=== PATIENT | male | born 1965 | race Caucasian/White ===

== ENCOUNTER 2020-06-10 23:57 | Inpatient (IN) | payer OTHER ==
--- NOTE | 2020-06-11 00:34 | PDOC ---
History of Present Illness - General Chief Complaint: Urinary Problem Stated Complaint: PAINFUL URINATION Time Seen by Provider: 06/11/20 00:34 History Source: Patient Exam Limitations: No Limitations - History of Present Illness Initial Comments: 06/11/20 00:34 Jose E Dior is a 55M with PMH NIDDM presenting with complaint of dark urine and burning with urination. Patient reports that he has not seen a doctor in the last 20 years, travels back and forth between [place] and the [place], does not have a primary MD that he gets Rx from. Last 3 days has had darker urine and dysuria, farrell when he urinates, also normally has frequency but has urinating less. Reports some intermittent R flank pain as well. Denies discharge or hematuria. Denies N/V, abdominal pain, fever, chills, chest pain, SOB, cough, diarrhea. Tolerating PO. Denies sexual activity in the last 2 months, has had STI in the past. No PSH, no other reported PMH, no other medications other than metformin taken. Past History - Medical History Allergies/Adverse Reactions: Allergies Allergy/AdvReac Type Severity Reaction Status Date / Time No Known Allergies Allergy Verified 06/11/20 00:20 - Psycho-Social/Smoking History Smoking History: Never smoked Information on smoking cessation initiated: No - Substance Abuse Hx (Audit-C & DAST Scrn) How often the patient has a drink containing alcohol: Never Score: In Men: 4 or > Positive; In Women: 3 or > Positive: 0 Screen Result (Pos requires Nsg. Audit-10AR): Negative In the last yr the pt used illegal drug/Rx for NonMed reason: No Score: Yes response is considered Positive: 0 Screen Result (Positive result requires Nsg. DAST-10): Negative Review of Systems - Review of Systems Able to Perform ROS?: Yes Constitutional: No: Chills, Fever, Weakness HEENTM: No: Symptoms Reported Respiratory: No: Shortness of Breath, SOB with Exertion, SOB at Rest Cardiac (ROS): No: Chest Pain, Edema, Irregular Heart Rate, Lightheadedness, Palpitations ABD/GI: No: Constipated, Diarrhea, Nausea, Poor Appetite, Poor Fluid Intake, V omiting : Yes: Burning, Flank Pain. No: Dysuria, Discharge, Hematuria, Incontinence, Pain Musculoskeletal: No: Symptoms Reported Integumentary: No: Symptoms Reported Neurological: No: Symptoms reported Endocrine: No: Symptoms Reported Hematologic/Lymphatic: No: Symptoms Reported All Other Systems: Reviewed and Negative *Physical Exam - Vital Signs Last Vital Signs Temp Pulse Resp BP Pulse Ox 98.4 F 95 H 18 121/74 100 06/11/20 00:00 06/11/20 00:00 06/11/20 00:00 06/11/20 00:00 06/11/20 00:00 - Physical Exam General Appearance: Yes: Nourished, Appropriately Dressed, Other (resting comfor tably in bed, very cooperative, in NAD). No: Apparent Distress HEENT: positive: EOMI, DIVYA, Normal Voice, Symmetrical, Pharynx Normal, Hearing Grossly Normal. negative: Scleral Icterus (R), Scleral Icterus (L), Pharyngeal Erythema, Tonsillar Exudate, Tonsillar Erythema Neck: negative: Tender, Lymphadenopathy (R), Lymphadenopathy (L) Respiratory/Chest: positive: Lungs Clear, Normal Breath Sounds. negative: Chest Tender, Respiratory Distress, Accessory Muscle Use Cardiovascular: positive: Regular Rhythm, Regular Rate. negative: Murmur Gastrointestinal/Abdominal: positive: Normal Bowel Sounds, Flat, Soft. negative: Tender, Rebound, Tenderness, Hernia Rectal Exam: positive: normal exam, NL Prostate. negative: decreased tone, hemorrhoids Musculoskeletal: positive: Normal Inspection, Vertebral Tenderness. negative: CVA Tenderness Extremity: positive: Normal Capillary Refill, Normal Inspection, Normal Range of Motion. negative: Tender, Pedal Edema, Swelling, Calf Tenderness Integumentary: positive: Normal Color, Dry, Warm Neurologic: positive: Fully Oriented, Alert, Normal Mood/Affect, Normal Response ED Treatment Course - LABORATORY CBC & Chemistry Diagram: 06/11/20 00:45 06/11/20 00:45 - RADIOLOGY Radiograph Interpretation: 06/11/20 03:27 Jose Cornejo MD wrote on Jun 11, 2020 at 01:54 AM: Referring Physician: BRADLY TENORIO RESIDENT Patient Name: JOSE E DIOR THIS IS A PRELIMINARY REPORT DATE OF SERVICE: 2020-06-11 01:33:16 IMAGES: 25 EXAM: KIDNEY / RENAL US HISTORY: Right flank pain COMPARISON: None. FINDINGS: Right kidney is 10.9 cm in length and appears normal. Left kidney is 10.7 cm in length and appears normal IMPRESSION: Normal kidneys. 06/11/20 04:41 Jose Cornejo MD wrote on Jun 11, 2020 at 04:16 AM: Referring Physician: BRADLY TENORIO RESIDENT Patient Name: JOSE E DIOR THIS IS A PRELIMINARY REPORT DATE OF SERVICE: 2020-06-11 02:58:47 IMAGES: 607 EXAM: CT abdomen and pelvis without contrast HISTORY: Renal calculus COMPARISON: None. FINDINGS: Lung bases are clear. The visualized cardiac chambers are normal size and configuration. Ultrasound of the gallbladder inflammation or biliary duct dilation. Minimal right hydronephrosis is noted secondary to a 7 mm mid to distal right ureteral stone. Punctate left renal stone is also noted. Normal liver, pancreas, spleen, adrenal glands. The stomach and abdominal small and large bowel are normal. There is no aortic aneurysm. There is no significant retroperitoneal lymphadenopathy. The pelvic small and large bowel are normal. The appendix is normal. The urinary bladder and prostate gland are normal. No pelvic free fluid is identified. There is no significant pelvic lymphadenopathy. IMPRESSION: Minimal right hydronephrosis secondary to a 7 mm mid to distal right ureteral stone. Punctate left renal stone. Gallstones. Medical Decision Making - Medical Decision Making 06/11/20 01:42 Patient presents with complaint of dysuria and flank pain, has history of NIDDM but does not closely follow BGM. Patient denies any recent sexual activity, has no discharge or lesions on exam. VSS. Getting CBC/CMP/ECG to evaluate for infection and electrolyte abnormality, UA/UC for evaluation UTI, and US renal for evaluation stone vs. hydro. 06/11/20 01:44 ECG NSR with HR 86, QTc 411, no LES/D or TWI. 06/11/20 02:35 Renal US shows normal kidneys. Labs notable for: - WBC 14 - CMP WNL - UA 3+ blood, 1+ ketones Given hematuria, concerned for renal calculus vs. AAA, patient has not been evaluated by physician in a long time. Ordering spiral CT for evaluation. 06/11/20 04:42 CT spiral shows 7mm R mid to distal ureteral stone with mild R hydronephrosis. Will need admission for urology f/u, would also like DM management planning. 06/11/20 05:16 Discussed case with ELAINA Kim, accepts for admission to Med/Surg under Dr. Frias, consult placed to Dr. Jose A Garcia urologist executive relations specialist. Discharge - Discharge Information Problems reviewed: Yes Clinical Impression/Diagnosis: Dysuria, Flank pain, Ureteral calculus, right Condition: Improved - Admission Yes - Follow up/Referral - Patient Discharge Instructions - Post Discharge Activity
[2020-06-11 00:35] VITALS: BMI 28.2
--- NOTE | 2020-06-11 01:14 | PDOC ---
Attending Attestation - Resident Resident Name: SvetlanayashiraWander - ED Attending Attestation I have performed the following: I have examined & evaluated the patient, The case was reviewed & discussed with the resident, I agree w/resident's findings & plan, Exceptions are as noted - HPI HPI: 06/11/20 01:13 55 yo male p/w burning upon urination and right flank pain 06/11/20 01:34 - Physicial Exam PE: 06/11/20 01:14 wnwd 55 yo male has c/o dysuria head ncat neck supple lungs cta b/l cvs [id number] abdomen no rebound, nontender mild rt flank pain skin warm and dry extremities from,motor strength 5/5 b/l neuro axox3,ambulatory 06/11/20 01:45 - Medical Decision Making 06/11/20 01:25 this 55 yo has not seen a physician for many years . He was diagnosed with hyperglycenmia in 2010. He does not have a prescription for metformin but buys it in the [place] where he had lived up until recently -he noted his urine getting darker and so came to the ER tonight 06/11/20 01:34 06/11/20 01:43 review labs there is blood in the urine but he is not spilling any glucose cbc shows a leukocytosis UA reveals hematuria US pending 06/11/20 01:47 Discharge - Discharge Information Problems reviewed: Yes Clinical Impression/Diagnosis: Dysuria, Flank pain, Ureteral calculus, right Condition: Improved - Follow up/Referral - Patient Discharge Instructions - Post Discharge Activity
[2020-06-11 01:33] LABS: BASO % 0.8 % (0-2.0); EOS % 1.9 % (0-4.5); HEMATOCRIT 45.3 % (35.4-49); HEMOGLOBIN 15.5 GM/dL (11.7-16.9); LYMPH % 26.5 % (8-40); MCH 31.2 pg (25.7-33.7); MCHC 34.2 g/dl (32.0-35.9); MEAN CELL VOLUME 91.2 fl (80-96); MONO % 6.1 % (3.8-10.2); NEUT % 64.7 % (42.8-82.8); PLATELET COUNT 171 K/MM3 (134-434); RBC 4.97 M/mm3 (4.00-5.60); WHITE BLOOD COUNT 14.1 K/mm3 (4.0-10.0)
[2020-06-11 01:36] LABS: EPI CELLS 4 /uL (0-25.1); HYALINE CASTS 0 /uL (0-3.1); URINE APPEARANCE CLOUDY; URINE BACTERIA 3 /uL (0-1359); URINE BILIRUBIN NEGATIVE (NEGATIVE); URINE COLOR YELLOW; URINE GLUCOSE (UA) NEGATIVE (NEGATIVE); URINE KETONE 1+ (NEGATIVE); URINE LEUK ESTERASE NEGATIVE (NEGATIVE); URINE NITRITE NEGATIVE (NEGATIVE); URINE PROTEIN TRACE (NEGATIVE); URINE RBC 1551 /uL (0-23.9); URINE WBC 19 /uL (0-25.8)
[2020-06-11 01:51] LABS: BILIRUBIN,TOTAL 0.5 mg/dL (0.2-1); CREATININE 0.8 mg/dL (0.55-1.3); POTASSIUM 3.9 mmol/L (3.5-5.1); TOT PROT 6.9 g/dl (6.4-8.2)
--- NOTE | 2020-06-11 05:26 | HP ---
CHIEF COMPLAINT: Flank Pain, Dysuria, Burning PCP: None HISTORY OF PRESENT ILLNESS: This is a 55 y/o male with a PMHx of NIDDM, hospitalized for DKA 10 yrs ago. Who presents to the ED with right flank pain, dysuria, burning x 4 days, dark brown urine x 1 day. Patients urinary frequency and a change in his urine stream. He denies penile discharge. Patient reports being in a monogamous relationship with his . Patient denies fever, chills, cough, SOB, dizziness, BENOIT, CP, palpitations, N/V/D, constipation, melena, hematochezia. Patient denies sick contacts. He reports recent travel from the [place] 4 weeks ago. He reports taking Met[place] for Diabetes [place] Patient reports not seeing a doctor in 20 years. ER course was notable for: (1) Spiral CT- 7mm right mid to distal ureteral stone with mild right hydronephrosis (2) Renal US- normal kidneys (3) WBC- 14 (4) Glucose 180 (5) UA- cloudy, trace protein, +1 ketones, +3 blood, 19 WBC, 3 Bacteria Recent Travel: 4 weeks ago PAST MEDICAL HISTORY: NIDDM PAST SURGICAL HISTORY: Cyst removal from buttock Social History: SmokinPPD x 30 yrs Alcohol: Denies Drugs: Denies , lives with his daughter (CHRISTINE) Allergies No Known Allergies Allergy (Verified 06/11/20 00:20) HOME MEDICATIONS: REVIEW OF SYSTEMS CONSTITUTIONAL: Absent: fever, chills, diaphoresis, generalized weakness, malaise, loss of appetite, weight change HEENT: Absent: rhinorrhea, nasal congestion, throat pain, throat swelling, difficulty swallowing, mouth swelling, ear pain, eye pain, visual changes CARDIOVASCULAR: Absent: chest pain, syncope, palpitations, irregular heart rate, lightheadedness, peripheral edema RESPIRATORY: Absent: cough, shortness of breath, dyspnea with exertion, orthopnea, wheezing, stridor, hemoptysis GASTROINTESTINAL: Absent: abdominal pain, abdominal distension, nausea, vomiting, diarrhea, constipation, melena, hematochezia GENITOURINARY: dysuria, frequency, flank pain, brown urine Absent: urgency, hesitancy, hematuria, genital pain MUSCULOSKELETAL: Absent: myalgia, arthralgia, joint swelling, back pain, neck pain SKIN: Absent: rash, itching, pallor HEMATOLOGIC/IMMUNOLOGIC: Absent: easy bleeding, easy bruising, lymphadenopathy, frequent infections ENDOCRINE: Absent: unexplained weight gain, unexplained weight loss, heat intolerance, cold intolerance NEUROLOGIC: Absent: headache, focal weakness or paresthesias, dizziness, unsteady gait, seizure, mental status changes, bladder or bowel incontinence PSYCHIATRIC: Absent: anxiety, depression, suicidal or homicidal ideation, hallucinations. PHYSICAL EXAMINATION Vital Signs - 24 hr 06/11/20 06/11/20 00:00 03:44 Temperature 98.4 F 97.8 F Pulse Rate 95 H Pulse Rate [ 84 Left Apical] Respiratory 18 19 Rate Blood Pressure 121/74 Blood Pressure 116/78 [Right Arm] O2 Sat by Pulse 100 98 Oximetry (%) GENERAL: Awake, alert, and fully oriented, in no acute distress. HEAD: Normal with no signs of trauma. EYES: Pupils equal, round and reactive to light, extraocular movements intact, sclera anicteric, conjunctiva clear. No lid lag. EARS, NOSE, THROAT: Ears normal, nares patent, oropharynx clear without exudates. Moist mucous membranes. NECK: Normal range of motion, supple without lymphadenopathy, JVD, or masses. LUNGS: Breath sounds equal, clear to auscultation bilaterally. No wheezes, and no crackles. No accessory muscle use. HEART: Regular rate and rhythm, normal S1 and S2 without murmur, rub or gallop. ABDOMEN: +suprapubic tenderness. Soft, nontender, not distended, normoactive bowel sounds, no guarding, no rebound, no masses. No hepatomegaly or splenomegaly. MUSCULOSKELETAL: Normal range of motion at all joints. No bony deformities or tenderness. No CVA tenderness. UPPER EXTREMITIES: 2+ pulses, warm, well-perfused. No cyanosis. No clubbing. No peripheral edema. LOWER EXTREMITIES: 2+ pulses, warm, well-perfused. No calf tenderness. No peripheral edema. NEUROLOGICAL: Cranial nerves II-XII intact. Normal speech. Gait not observed. PSYCHIATRIC: Cooperative. Good eye contact. Appropriate mood and affect. SKIN: Warm, dry, normal turgor, no rashes or lesions noted, normal capillary refill. Laboratory Results - last 24 hr 06/11/20 06/11/20 06/11/20 00:37 00:45 00:45 WBC 14.1 H RBC 4.97 Hgb 15.5 Hct 45.3 MCV 91.2 MCH 31.2 MCHC 34.2 RDW 13.0 Plt Count 171 MPV 10.0 Absolute Neuts (auto) 9.1 H Neutrophils % 64.7 Lymphocytes % 26.5 Monocytes % 6.1 Eosinophils % 1.9 Basophils % 0.8 Nucleated RBC % 0 Sodium 140 Potassium 3.9 Chloride 106 Carbon Dioxide 27 Anion Gap 7 L BUN 12.0 Creatinine 0.8 Est GFR (CKD-EPI)AfAm 117.38 Est GFR (CKD-EPI)NonAf 101.27 Random Glucose 180 H Calcium 9.0 Total Bilirubin 0.5 AST 13 L ALT 23 Alkaline Phosphatase 72 Total Protein 6.9 Albumin 4.0 Urine Color Yellow Urine Appearance Cloudy Urine pH 7.0 Ur Specific [place] 1.025 Urine Protein Trace Urine Glucose (UA) Negative Urine Ketones 1+ H Urine Blood 3+ H Urine Nitrite Negative Urine Bilirubin Negative Urine Urobilinogen 1.0 Ur Leukocyte Esterase Negative Urine WBC (Auto) 19 Urine RBC (Auto) 1551 Urine Casts (Auto) 0 U Epithel Cells (Auto) 4 Urine Bacteria (Auto) 3 ASSESSMENT/PLAN: This is a 55 y/o male with a PMHx of NIDDM, DKA (10 yrs ago). Admitted to /S for Ureteral Calculus, Hydronephrosis, UTI for further evaluation of their emergent condition. Plan: See Problem List FEN D50.45%NS@75ml/hr Replete lytes prn NPO DVT ppx OOB SCDs Hold AC secondary to Hematuria Dispo: Requires Inpatient Care Family Medical History Family History: Unremarkable Problem List - Problem (1) Ureteral calculus, right Assessment/Plan: Spiral CT image, report reviewed- minimal right hydronephrosis secondary to a 7 mm mid to distal right ureteral stone. Punctate left renal stone Renal US image, report reviewed- Normal Kidneys Continue IVF Appreciate Urology consult Monitor CBC, CMP Monitor vitals NPO Flomax Morphine Sulfate prn Strain all urine Code(s): N20.1 - CALCULUS OF URETER (2) Flank pain Assessment/Plan: see above Code(s): R10.9 - UNSPECIFIED ABDOMINAL PAIN (3) Hydronephrosis Assessment/Plan: Secondary to Ureteral Stone Appreciate Urology consult Flomax Continue IVF Code(s): N13.30 - UNSPECIFIED HYDRONEPHROSIS (4) UTI (urinary tract infection) Assessment/Plan: UA- cloudy, trace protein, +1 ketones, +3 blood, 19 WBC, 1551 RBC, 3 Bacteria Urine Culture-pending Will treat empirically with Ceftriaxone WBC 14 Monitor CBC Monitor vitals Code(s): N39.0 - URINARY TRACT INFECTION, SITE NOT SPECIFIED (5) Diabetes mellitus Assessment/Plan: stable BGMs ISS, when diet resumed Hold Metformin Monitor CMP Code(s): E11.9 - TYPE 2 DIABETES MELLITUS WITHOUT COMPLICATIONS (6) Encounter for screening laboratory testing for COVID-19 virus Assessment/Plan: Low Risk COVID PCR-pending Isolation Precautions Code(s): Z11.59 - ENCOUNTER FOR SCREENING FOR OTHER VIRAL DISEASES Visit type - Emergency Visit Emergency Visit: Yes ED Registration Date: 06/11/20 Care time: The patient presented to the Emergency Department on the above date and was hospitalized for further evaluation of their emergent condition. - New Patient This patient is new to me today: Yes Date on this admission: 06/11/20 - Critical Care Critical Care patient: No
[2020-06-11] MEDS ORDERED: CEFTRIAXONE 1 GM in DEXTROSE 5%-WATER - 50 ML IVPB ONE (05:31)
[2020-06-11] MEDS ORDERED: CEFTRIAXONE 1 GM/50 ML BAG ONE ×2 (06:00→09:08)
[2020-06-11] MEDS: DEXTROSE 5%-0.45% SALINE 1,000 ML IV SCH ×2 (06:07→11:25)
[2020-06-11] MEDS ORDERED: ACETAMINOPHEN 1000 MG/100 ML VIAL (NON FORMULARY) IVPB PRN (07:29)
[2020-06-11] MEDS ORDERED: MORPHINE SULFATE 2 MG/ML VIAL IVPUSH PRN (07:30)
[2020-06-11] MEDS ORDERED: TAMSULOSIN HCL 0.4 MG CAP ONE (09:08)
[2020-06-11] MEDS: TAMSULOSIN HCL 0.4 MG CAP PO SCH (09:30)
--- NOTE | 2020-06-11 10:08 | PN ---
Physical Exam: SUBJECTIVE: Patient seen and examined at the bedside. He is awaiting ED bed assignment. He denies any pain, no nausea or vomiting. Has not seen a doctor for over 11 years per patient. Travels between the [place] and [facility]. Tells me that he does not want to have surgery. Asked him to wait to speak with urology so that options can be discussed with them. OBJECTIVE: Patient is a 55 y/o male with a PMHx of NIDDM, hospitalized for DKA 10 yrs ago. Who presents to the ED with right flank pain, dysuria, burning x 4 days, dark brown urine x 1 day. Patients urinary frequency and a change in his urine stream. Patient denies fever, chills, cough, SOB, dizziness, BENOIT, CP, palpitations, N/V/D, constipation, melena, hematochezia. Patient denies sick contacts. He reports recent travel from the [facility] 4 weeks ago. He reports taking Metformin for Diabetes [place] Vital Signs Period Temp Pulse Resp BP Sys/Mckeon Pulse Ox Last 24 Hr 97.8 F-98.4 F 77-95 18-19 116-131/74-86 96-100 GENERAL: The patient is awake, alert, and fully oriented, in no acute distress. HEAD: Normal with no signs of trauma. EYES: PERRL, extraocular movements intact, sclera anicteric, conjunctiva clear. No ptosis. ENT: Ears normal, nares patent, oropharynx clear without exudates, moist mucous membranes. NECK: Trachea midline, full range of motion, supple. LUNGS: Breath sounds equal, clear to auscultation bilaterally, no wheezes HEART: Regular rate and rhythm, S1, S2 without murmur, rub or gallop. ABDOMEN: Soft, nontender, nondistended, normoactive bowel sounds EXTREMITIES: no edema. NEUROLOGICAL: Normal speech, gait not observed. PSYCH: Normal mood, normal affect. SKIN: Warm, dry, normal turgor, no rashes or lesions noted Laboratory Results - last 24 hr 06/11/20 06/11/20 06/11/20 00:37 00:45 00:45 WBC 14.1 H RBC 4.97 Hgb 15.5 Hct 45.3 MCV 91.2 MCH 31.2 MCHC 34.2 RDW 13.0 Plt Count 171 MPV 10.0 Absolute Neuts (auto) 9.1 H Neutrophils % 64.7 Lymphocytes % 26.5 Monocytes % 6.1 Eosinophils % 1.9 Basophils % 0.8 Nucleated RBC % 0 Sodium 140 Potassium 3.9 Chloride 106 Carbon Dioxide 27 Anion Gap 7 L BUN 12.0 Creatinine 0.8 Est GFR (CKD-EPI)AfAm 117.38 Est GFR (CKD-EPI)NonAf 101.27 Random Glucose 180 H Calcium 9.0 Total Bilirubin 0.5 AST 13 L ALT 23 Alkaline Phosphatase 72 Total Protein 6.9 Albumin 4.0 Urine Color Yellow Urine Appearance Cloudy Urine pH 7.0 Ur Specific [place] 1.025 Urine Protein Trace Urine Glucose (UA) Negative Urine Ketones 1+ H Urine Blood 3+ H Urine Nitrite Negative Urine Bilirubin Negative Urine Urobilinogen 1.0 Ur Leukocyte Esterase Negative Urine WBC (Auto) 19 Urine RBC (Auto) 1551 Urine Casts (Auto) 0 U Epithel Cells (Auto) 4 Urine Bacteria (Auto) 3 Active Medications Generic Name Dose Route Start Last Admin Trade Name Carmen PRN Reason Stop Dose Admin Acetaminophen 1,000 mg 06/11/20 07:29 Ofirmev Injection - IVPB 06/12/20 07:30 Q6H PRN PAIN LEVEL 4 - 6 Dextrose/Sodium Chloride 1,000 mls @ 75 mls/hr 06/11/20 05:30 06/11/20 06:07 D5-1/2ns - IV 75 mls/hr ASDIR ABILIO Administration Ceftriaxone Sodium 1 gm/ 50 mls @ 100 mls/hr 06/12/20 10:00 Dextrose IVPB DAILY [facility] Protocol Morphine Sulfate 2 mg 06/11/20 07:30 Morphine Sulfate IVPUSH Q6H PRN PAIN LEVEL 7 - 10 Nicotine 14 mg 06/11/20 10:00 Nicoderm Patch - TD DAILY [facility] Tamsulosin HCl 0.4 mg 06/11/20 08:30 Flomax - PO DAILY@0830 [facility] ASSESSMENT/PLAN: Problem List - Problems (1) Diabetes mellitus Assessment/Plan: patient uses metformin which he buys from his friends, has no PCP or anyone to follow his diabetes. encouraged him to attend our clinic at [facility] on d/c, he agrees to. He is uninsured at this time but I assured him that a sliding scale may be provided for him. on insulin pending a1c Code(s): E11.9 - TYPE 2 DIABETES MELLITUS WITHOUT COMPLICATIONS (2) Dysuria Assessment/Plan: on flomax, urology consulted Code(s): R30.0 - DYSURIA (3) Encounter for screening laboratory testing for COVID-19 virus Assessment/Plan: serology pending Code(s): Z11.59 - ENCOUNTER FOR SCREENING FOR OTHER VIRAL DISEASES (4) Flank pain Code(s): R10.9 - UNSPECIFIED ABDOMINAL PAIN (5) Hydronephrosis Assessment/Plan: per imaging, urology following Code(s): N13.30 - UNSPECIFIED HYDRONEPHROSIS (6) UTI (urinary tract infection) Assessment/Plan: on ceftriaxone. urine culture pending Code(s): N39.0 - URINARY TRACT INFECTION, SITE NOT SPECIFIED (7) Ureteral calculus, right Assessment/Plan: Spiral CT image, report reviewed-minimal right hydronephrosis secondary to a 7 mm mid to distal right ureteral stone. Punctate left renal stone Renal US image, report reviewed- Normal Kidneys on IVF Flomax Strain all urine Code(s): N20.1 - CALCULUS OF URETER Visit type - Emergency Visit Emergency Visit: Yes ED Registration Date: 06/11/20 Care time: The patient presented to the Emergency Department on the above date and was hospitalized for further evaluation of their emergent condition. - New Patient This patient is new to me today: Yes Date on this admission: 06/11/20 - Critical Care Critical Care patient: No - Discharge Referral Referred to [facility] No
--- NOTE | 2020-06-11 10:37 | EKG ---
Test Reason : Blood Pressure : / mmHG Vent. Rate : 086 BPM Atrial Rate : 086 BPM P-R Int : 148 ms QRS Dur : 086 ms QT Int : 344 ms P-R-T Axes : 070 066 046 degrees QTc Int : 411 ms NORMAL SINUS RHYTHM NORMAL ECG NO PREVIOUS ECGS AVAILABLE Confirmed by Josh Delgadillo MD ([id number]) on 06/11/2020 10:36:33 AM Referred By: Confirmed By:Josh Delgadillo MD
[2020-06-11] MEDS: NICOTINE 14 MG/24 HOURS TOPICAL PATCH TD SCH (11:25)
[2020-06-11] MEDS: INSULIN SLIDING SCALE (NOVOLOG) 1 VIAL SQ SCH ×2 (17:30→23:53)
--- NOTE | 2020-06-11 22:55 | CONS ---
DATE OF CONSULTATION: DATE OF DICTATION: 06/11/2020 HISTORY OF PRESENT ILLNESS: The patient is a 55-year-old male admitted via the emergency room on June 11, 2020, complaining of right flank pain, frequency, dysuria, and stranguria. He does have history of noninsulin dependent diabetes, he was hospitalized 10 years earlier for diabetic ketoacidosis. He has been complaining of right flank pain for the past 4 days. He states that his urine has gotten darker. Patient's frequency also increased in severity. He denies any penile discharge. He reports being in a monogamous relationship with his . He denies fevers, chills, chest pain. Patient reports that he travels between the [facility] and [place]. He arrives here 4 weeks earlier. He is on metformin for his diabetes. He does not have a PMD in [place]. In the emergency room, a spiral CT of the abdomen revealed a 7-mm right mid ureteral stone with mild right hydroureteronephrosis. His white count was 14,000. His glucose is 180. His urinalysis is heme positive. He does smoke 1 pack of cigarettes a day. He denies ethanolism or drug use. He denies any allergies. PHYSICAL EXAMINATION: Abdomen: Revealed a soft abdomen. There was right CVA tenderness, also right lower quadrant tenderness. Genitalia: Atraumatic. Testes are normal in size and consistency. Vital signs: His temperature in the emergency room was 98.4, pulse rate 84, respirations 19, blood pressure 121/74, pulse oximetry 100. The patient's white count again is 14,100. Hemoglobin and hematocrit are 15.5 over 45.3. Platelets were 171. His renal function is perfectly normal with a BUN of 12 and a creatinine of 0.8. Liver enzymes were normal. A urinalysis was positive for blood, ketones, and sugar. IMPRESSION: At present is a 55-year-old male with past history of diabetes, presents with right hydronephrosis and a right mid ureteral stone, severe right flank pain. Will admit and strain urine. Will also recommend placing the patient on Flomax 0.4 mg daily. Will get renal sonogram in a.m. If hydronephrosis is still present, will recommend cystoscopy, right laser lithotripsy with placement of a JJ stent. Ambar [id number]
[2020-06-11] MEDS: HEPARIN NA (PORCINE) 5,000 UNITS/ML 1ML VIAL SQ SCH (23:52)
[2020-06-12] MEDS: DEXTROSE 5%-0.45% SALINE 1,000 ML IV SCH ×3 (00:37→17:04)
[2020-06-12] MEDS: INSULIN SLIDING SCALE (NOVOLOG) 1 VIAL SQ SCH ×4 (06:00→21:54)
[2020-06-12] MEDS ORDERED: PNEUMOC 13-VAL CONJ-DIP CRM/PF 0.5 ML DISP.SYRIN IM ONE (08:28)
[2020-06-12] MEDS: TAMSULOSIN HCL 0.4 MG CAP PO SCH (08:32)
[2020-06-12] MEDS ORDERED: cefTRIAXone SODIUM 1 GM VIAL ONE (09:46)
[2020-06-12] MEDS ORDERED: DEXTROSE 5%-WATER - 50 ML IVPB ONE (09:46)
[2020-06-12] MEDS: HEPARIN NA (PORCINE) 5,000 UNITS/ML 1ML VIAL SQ SCH ×2 (11:18→21:55)
[2020-06-12] MEDS: CEFTRIAXONE 1 GM in DEXTROSE 5%-WATER - 50 ML IVPB SCH (11:18)
[2020-06-12] MEDS: NICOTINE 14 MG/24 HOURS TOPICAL PATCH TD SCH (11:18)
[2020-06-12 11:19] LABS: BASO % 1.2 % (0-2.0); EOS % 2.4 % (0-4.5); HEMATOCRIT 44.6 % (35.4-49); HEMOGLOBIN 15.3 GM/dL (11.7-16.9); LYMPH % 30.9 % (8-40); MCH 31.5 pg (25.7-33.7); MCHC 34.3 g/dl (32.0-35.9); MEAN CELL VOLUME 91.9 fl (80-96); MEAN PLT VOLUME 9.8 fl (7.5-11.1); MONO % 7.4 % (3.8-10.2); NEUT % 58.1 % (42.8-82.8); PLATELET COUNT 153 K/MM3 (134-434); RBC 4.85 M/mm3 (4.00-5.60); RDW 13.1 % (11.9-15.9)
[2020-06-12 11:50] LABS: ALBUMIN 3.4 g/dl (3.4-5.0); BILIRUBIN,TOTAL 0.7 mg/dL (0.2-1); BLOOD UREA NITROGEN 9.7 mg/dL (7-18); CALCIUM 8.6 mg/dL (8.5-10.1); CREATININE 0.7 mg/dL (0.55-1.3); POTASSIUM 3.9 mmol/L (3.5-5.1); TOT PROT 6.4 g/dl (6.4-8.2)
[2020-06-12] MEDS ORDERED: INSULIN (NOVOLOG) ASPART 100 UNITS/ML 10ML VIAL ONE (16:57)
--- NOTE | 2020-06-12 17:47 | PN ---
Physical Exam: SUBJECTIVE: Patient seen and examined. Denies malaise or chest pain. OBJECTIVE: Patient is a 55 y/o male with a PMHx of NIDDM, hospitalized for DKA 10 yrs ago. Who presents to the ED with right flank pain, dysuria, burning x 4 days, dark brown urine x 1 day. Patients urinary frequency and a change in his urine strea m. Patient denies fever, chills, cough, SOB, dizziness, BENOIT, CP, palpitations, N/V/D, constipation, melena, hematochezia. Patient denies sick contacts. He reports recent travel from the [place] 4 weeks ago. He reports taking Met[place] for [place] does not take it consistently. Vital Signs Period Temp Pulse Resp BP Sys/Mckeon Pulse Ox Last 24 Hr 98.4 F-99 F 72-77 16-18 118-132/63-78 97-98 GENERAL: The patient is awake, alert, and fully oriented, in no acute distress. HEAD: Normal with no signs of trauma. EYES: PERRL, extraocular movements intact, sclera anicteric, conjunctiva clear. No ptosis. ENT: Ears normal, nares patent, oropharynx clear without exudates, moist mucous membranes. NECK: Trachea midline, full range of motion, supple. LUNGS: Breath sounds equal, clear to auscultation bilaterally, no wheezes HEART: Regular rate and rhythm, S1, S2 without murmur, rub or gallop. ABDOMEN: Soft, nontender, nondistended, normoactive bowel sounds EXTREMITIES: no edema. NEUROLOGICAL: Normal speech, gait not observed. PSYCH: Normal mood, normal affect. SKIN: Warm, dry, normal turgor, no rashes or lesions noted Laboratory Results - last 24 hr 06/11/20 06/11/20 06/11/20 05:54 10:00 23:46 WBC RBC Hgb Hct MCV MCH MCHC RDW Plt Count MPV Absolute Neuts (auto) Neutrophils % Lymphocytes % Monocytes % Eosinophils % Basophils % Nucleated RBC % Sodium Potassium Chloride Carbon Dioxide Anion Gap BUN Creatinine Est GFR (CKD-EPI)AfAm Est GFR (CKD-EPI)NonAf POC Glucometer 156 Random Glucose Hemoglobin A1c % 10.9 H Calcium Magnesium Total Bilirubin AST ALT Alkaline Phosphatase Total Protein Albumin COVID-19 (LUIS) Not detected 06/12/20 06/12/20 06/12/20 05:48 10:46 10:46 WBC 8.0 RBC 4.85 Hgb 15.3 Hct 44.6 MCV 91.9 MCH 31.5 MCHC 34.3 RDW 13.1 Plt Count 153 MPV 9.8 Absolute Neuts (auto) 4.7 Neutrophils % 58.1 Lymphocytes % 30.9 Monocytes % 7.4 Eosinophils % 2.4 Basophils % 1.2 Nucleated RBC % 0 Sodium 138 Potassium 3.9 Chloride 105 Carbon Dioxide 25 Anion Gap 7 L BUN 9.7 Creatinine 0.7 Est GFR (CKD-EPI)AfAm 124.00 Est GFR (CKD-EPI)NonAf 106.99 POC Glucometer 185 Random Glucose 217 H Hemoglobin A1c % Calcium 8.6 Magnesium 2.0 Total Bilirubin 0.7 AST 11 L ALT 22 Alkaline Phosphatase 70 Total Protein 6.4 Albumin 3.4 COVID-19 (LUIS) 06/12/20 06/12/20 11:07 16:28 WBC RBC Hgb Hct MCV MCH MCHC RDW Plt Count MPV Absolute Neuts (auto) Neutrophils % Lymphocytes % Monocytes % Eosinophils % Basophils % Nucleated RBC % Sodium Potassium Chloride Carbon Dioxide Anion Gap BUN Creatinine Est GFR (CKD-EPI)AfAm Est GFR (CKD-EPI)NonAf POC Glucometer 193 220 Random Glucose Hemoglobin A1c % Calcium Magnesium Total Bilirubin AST ALT Alkaline Phosphatase Total Protein Albumin COVID-19 (LUIS) Active Medications Generic Name Dose Route Start Last Admin Trade Name Freq PRN Reason Stop Dose Admin Heparin Sodium (Porcine) 5,000 unit 06/11/20 22:00 06/12/20 11:18 Heparin - SQ 5,000 unit BID ABILIO Administration Dextrose/Sodium Chloride 1,000 mls @ 75 mls/hr 06/11/20 05:30 06/12/20 17:04 D5-1/2ns - IV 75 mls/hr ASDIR ABILIO Administration Ceftriaxone Sodium 1 gm/ 50 mls @ 100 mls/hr 06/12/20 10:00 06/12/20 11:18 Dextrose IVPB 100 mls/hr DAILY ABILIO Administration Protocol Insulin Aspart 1 vial 06/11/20 16:30 06/12/20 17:03 Novolog Vial Sliding Scale - SQ 4 units ACHS ABILIO Administration Protocol Morphine Sulfate 2 mg 06/11/20 07:30 Morphine Sulfate IVPUSH Q6H PRN PAIN LEVEL 7 - 10 Nicotine 14 mg 06/11/20 10:00 06/12/20 11:18 Nicoderm Patch - TD Not Given DAILY [facility] Pneumococcal 13-Valent Conj Vacc 0.5 ml 06/12/20 08:28 Prevnar 13 Syringe - IM 06/12/20 08:29 .ONCE ONE Tamsulosin HCl 0.4 mg 06/11/20 08:30 06/12/20 08:32 Flomax - PO 0.4 mg DAILY@0830 [facility] Administration ASSESSMENT/PLAN: Problem List - Problems (1) Ureteral calculus, right Assessment/Plan: Spiral CT image, report reviewed-minimal right hydronephrosis secondary to a 7 mm mid to distal right ureteral stone. Punctate left renal stone Renal US image, report reviewed- Normal Kidneys on IVF Flomax for cystoscopy and lithotripsy. npo at midnight Code(s): N20.1 - CALCULUS OF URETER (2) Diabetes mellitus Assessment/Plan: patient uses metformin which he buys from his friends but does not use it consistently, has no PCP or anyone to follow his diabetes. encouraged him to attend our clinic at [facility] on d/c, he agrees to. He is uninsured at this time but I assured him that he may benefit from a long acting insulin along with metformin. A1C elevated at 10.9 will start on levemir 5 Code(s): E11.9 - TYPE 2 DIABETES MELLITUS WITHOUT COMPLICATIONS (3) Dysuria Assessment/Plan: on flomax, urology consulted. Code(s): R30.0 - DYSURIA (4) Encounter for screening laboratory testing for COVID-19 virus Assessment/Plan: serology negative Code(s): Z11.59 - ENCOUNTER FOR SCREENING FOR OTHER VIRAL DISEASES (5) Flank pain Code(s): R10.9 - UNSPECIFIED ABDOMINAL PAIN (6) Hydronephrosis Assessment/Plan: patient for cystoscopy and possible lithtropsy tomorrow. NPO at midnight Code(s): N13.30 - UNSPECIFIED HYDRONEPHROSIS (7) UTI (urinary tract infection) Assessment/Plan: on ceftriaxone. urine culture pending Code(s): N39.0 - URINARY TRACT INFECTION, SITE NOT SPECIFIED Visit type - Emergency Visit Emergency Visit: Yes ED Registration Date: 06/11/20 Care time: The patient presented to the Emergency Department on the above date and was hospitalized for further evaluation of their emergent condition. - New Patient This patient is new to me today: No - Critical Care Critical Care patient: No - Discharge Referral Referred to [facility] No
[2020-06-12] MEDS: INSULIN (LEVEMIR) 100 UNITS/ML UNITS SQ SCH (21:55)
[2020-06-13] MEDS: DEXTROSE 5%-0.45% SALINE 1,000 ML IV SCH (06:27)
[2020-06-13] MEDS: INSULIN SLIDING SCALE (NOVOLOG) 1 VIAL SQ SCH ×4 (06:27→21:35)
[2020-06-13] MEDS ORDERED: PT OWN MED DRAWER 7, Y5N ONE ×2 (07:04→11:44)
[2020-06-13 09:11] LABS: BASO % 1.8 % (0-2.0); EOS % 2.7 % (0-4.5); HEMATOCRIT 45.2 % (35.4-49); INR 1.09 (0.83-1.09); LYMPH % 39.8 % (8-40); MCH 30.4 pg (25.7-33.7); MCHC 33.3 g/dl (32.0-35.9); MEAN CELL VOLUME 91.2 fl (80-96); MEAN PLT VOLUME 10.2 fl (7.5-11.1); MONO % 7.3 % (3.8-10.2); NEUT % 48.4 % (42.8-82.8); PLATELET COUNT 174 K/MM3 (134-434); PROTHROMBIN TIME (PATIENT) 12.9 SEC (9.7-13.0); RBC 4.96 M/mm3 (4.00-5.60); RDW 13.1 % (11.9-15.9); WHITE BLOOD COUNT 7.7 K/mm3 (4.0-10.0)
[2020-06-13] MEDS ORDERED: cefTRIAXone SODIUM 1 GM VIAL ONE (09:41)
[2020-06-13 09:42] LABS: ALBUMIN 3.6 g/dl (3.4-5.0); BILIRUBIN,TOTAL 0.8 mg/dL (0.2-1); BLOOD UREA NITROGEN 10.8 mg/dL (7-18); CALCIUM 8.6 mg/dL (8.5-10.1); CREATININE 0.7 mg/dL (0.55-1.3); POTASSIUM 4.1 mmol/L (3.5-5.1); TOT PROT 6.7 g/dl (6.4-8.2)
[2020-06-13] MEDS ORDERED: DEXTROSE 5%-WATER - 50 ML IVPB ONE (09:42)
[2020-06-13] MEDS: CEFTRIAXONE 1 GM in DEXTROSE 5%-WATER - 50 ML IVPB SCH (10:01)
[2020-06-13] MEDS: HEPARIN NA (PORCINE) 5,000 UNITS/ML 1ML VIAL SQ SCH ×2 (10:32→21:36)
[2020-06-13] MEDS: TAMSULOSIN HCL 0.4 MG CAP PO SCH (10:32)
[2020-06-13] MEDS: NICOTINE 14 MG/24 HOURS TOPICAL PATCH TD SCH (10:32)
[2020-06-13] MEDS: PNEUMOCOCCAL 23 VACCINE 0.5 ML VIAL IM ONE ×2 (10:33→10:52)
--- NOTE | 2020-06-13 14:38 | PN ---
Physical Exam: SUBJECTIVE: Patient seen and examined at the bedside. OBJECTIVE: Patient is a 55 y/o male with a PMHx of NIDDM, hospitalized for DKA 10 yrs ago. Who presents to the ED with right flank pain, dysuria, burning x 4 days, dark brown urine x 1 day. Patients urinary frequency and a change in his urine stream. Patient denies fever, chills, cough, SOB, dizziness, BENOIT, CP, palpitations, N/V/D, constipation, melena, hematochezia. Patient denies sick contacts. He reports recent travel from the [place] 4 weeks ago. He reports taking Met[place] for [place] does not take it consistently. Period Temp Pulse Resp BP Sys/Mckeon Pulse Ox Last 24 Hr 98.0 F-98.7 F 66-77 17-18 117-134/63-79 97-100 GENERAL: The patient is awake, alert, and fully oriented, in no acute distress. HEAD: Normal with no signs of trauma. EYES: PERRL, extraocular movements intact, sclera anicteric, conjunctiva clear. No ptosis. ENT: Ears normal, nares patent, oropharynx clear without exudates, moist mucous membranes. NECK: Trachea midline, full range of motion, supple. LUNGS: Breath sounds equal, clear to auscultation bilaterally, no wheezes HEART: Regular rate and rhythm, S1, S2 without murmur, rub or gallop. ABDOMEN: Soft, nontender, nondistended, normoactive bowel sounds EXTREMITIES: no edema. NEUROLOGICAL: Normal speech, gait not observed. PSYCH: Normal mood, normal affect. SKIN: Warm, dry, normal turgor, no rashes or lesions noted Laboratory Results - last 24 hr 06/12/20 06/12/20 06/13/20 16:28 21:53 06:26 WBC RBC Hgb Hct MCV MCH MCHC RDW Plt Count MPV Absolute Neuts (auto) Neutrophils % Lymphocytes % Monocytes % Eosinophils % Basophils % Nucleated RBC % PT with INR INR Sodium Potassium Chloride Carbon Dioxide Anion Gap BUN Creatinine Est GFR (CKD-EPI)AfAm Est GFR (CKD-EPI)NonAf POC Glucometer 220 219 199 Random Glucose Calcium Magnesium Total Bilirubin AST ALT Alkaline Phosphatase Total Protein Albumin 06/13/20 06/13/20 06/13/20 07:45 07:45 07:45 WBC 7.7 RBC 4.96 Hgb 15.0 Hct 45.2 MCV 91.2 MCH 30.4 MCHC 33.3 RDW 13.1 Plt Count 174 MPV 10.2 Absolute Neuts (auto) 3.7 Neutrophils % 48.4 Lymphocytes % 39.8 D Monocytes % 7.3 Eosinophils % 2.7 Basophils % 1.8 Nucleated RBC % 0 PT with INR 12.90 INR 1.09 Sodium 139 Potassium 4.1 Chloride 107 Carbon Dioxide 24 Anion Gap 8 BUN 10.8 Creatinine 0.7 Est GFR (CKD-EPI)AfAm 124.00 Est GFR (CKD-EPI)NonAf 106.99 POC Glucometer Random Glucose 163 H Calcium 8.6 Magnesium 2.0 Total Bilirubin 0.8 AST 11 L ALT 23 Alkaline Phosphatase 68 Total Protein 6.7 Albumin 3.6 06/13/20 11:56 WBC RBC Hgb Hct MCV MCH MCHC RDW Plt Count MPV Absolute Neuts (auto) Neutrophils % Lymphocytes % Monocytes % Eosinophils % Basophils % Nucleated RBC % PT with INR INR Sodium Potassium Chloride Carbon Dioxide Anion Gap BUN Creatinine Est GFR (CKD-EPI)AfAm Est GFR (CKD-EPI)NonAf POC Glucometer 183 Random Glucose Calcium Magnesium Total Bilirubin AST ALT Alkaline Phosphatase Total Protein Albumin Active Medications Generic Name Dose Route Start Last Admin Trade Name Freq PRN Reason Stop Dose Admin Heparin Sodium (Porcine) 5,000 unit 06/11/20 22:00 06/13/20 10:32 Heparin - SQ 5,000 unit BID ABILIO Administration Dextrose/Sodium Chloride 1,000 mls @ 75 mls/hr 06/11/20 05:30 06/13/20 06:27 D5-1/2ns - IV 75 mls/hr ASDIR ABILIO Administration Ceftriaxone Sodium 1 gm/ 50 mls @ 100 mls/hr 06/12/20 10:00 06/13/20 10:01 Dextrose IVPB 100 mls/hr DAILY ABILIO Administration Protocol Insulin Aspart 1 vial 06/11/20 16:30 06/13/20 11:57 Novolog Vial Sliding Scale - SQ 2 units ACHS ABILIO Administration Protocol Insulin Detemir 5 units 06/12/20 22:00 06/12/20 21:55 Levemir Vial SQ 5 units HS ABILIO Administration Morphine Sulfate 2 mg 06/11/20 07:30 Morphine Sulfate IVPUSH Q6H PRN PAIN LEVEL 7 - 10 Nicotine 14 mg 06/11/20 10:00 06/13/20 10:32 Nicoderm Patch - TD 14 mg DAILY ABILIO Administration Tamsulosin HCl 0.4 mg 06/11/20 08:30 06/13/20 10:32 Flomax - PO 0.4 mg DAILY@0830 ABILIO Administration ASSESSMENT/PLAN: Problem List - Problems (1) Ureteral calculus, right Assessment/Plan: Spiral CT image, report reviewed-minimal right hydronephrosis secondary to a 7 mm mid to distal right ureteral stone. Punctate left renal stone Renal US image, report reviewed- Normal Kidneys on IVF Flomax was for a cysto and lithotripsy but repeat kidney imaging showed no further stone and mld right hydronephrosis Code(s): N20.1 - CALCULUS OF URETER (2) Diabetes mellitus Assessment/Plan: patient uses metformin which he buys from his friends but does not use it consistently, has no PCP or anyone to follow his diabetes. encouraged him to attend our clinic at [facility] on d/c, he agrees to. an appointment has been made for him as follows: Dr. Small Time: 10.a.m on June 24 2020 Bring: $150 to pay for the cost of visit and bring your discharge paperwork Address: [address] [place] [address] for home levemir 5units at 8am and metformin 750mg bid will need repeat hga1c as an outpatient to assure diabetes better controlled. Code(s): E11.9 - TYPE 2 DIABETES MELLITUS WITHOUT COMPLICATIONS (3) Dysuria Assessment/Plan: on flomax, urology consulted. Code(s): R30.0 - DYSURIA (4) Encounter for screening laboratory testing for COVID-19 virus Assessment/Plan: serology negative Code(s): Z11.59 - ENCOUNTER FOR SCREENING FOR OTHER VIRAL DISEASES (5) Flank pain Assessment/Plan: resolved Code(s): R10.9 - UNSPECIFIED ABDOMINAL PAIN (6) Hydronephrosis Assessment/Plan: right mild hydro, no kidney stone visualized will need outpatient follow up with urology cotinue flomax 0.4mg daily Code(s): N13.30 - UNSPECIFIED HYDRONEPHROSIS (7) UTI (urinary tract infection) Assessment/Plan: on ceftriaxone. urine culture pending Code(s): N39.0 - URINARY TRACT INFECTION, SITE NOT SPECIFIED Visit type - Emergency Visit Emergency Visit: Yes ED Registration Date: 06/11/20 Care time: The patient presented to the Emergency Department on the above date and was hospitalized for further evaluation of their emergent condition. - New Patient This patient is new to me today: No - Critical Care Critical Care patient: No - Discharge Referral Referred to [facility].: Yes
[2020-06-13] MEDS: DOCUSATE SODIUM 100 MG CAPSULE (FP) PO SCH (21:36)
[2020-06-13] MEDS: INSULIN (LEVEMIR) 100 UNITS/ML UNITS SQ SCH (21:36)
[2020-06-14 05:19] VITALS: PULSE 69; TEMP 98.7
[2020-06-14] MEDS: INSULIN SLIDING SCALE (NOVOLOG) 1 VIAL SQ SCH ×3 (05:45→12:05)
[2020-06-14] MEDS: DEXTROSE 5%-0.45% SALINE 1,000 ML IV SCH (05:46)
[2020-06-14] MEDS: DOCUSATE SODIUM 100 MG CAPSULE (FP) PO SCH ×2 (05:47→14:45)
[2020-06-14 09:22] LABS: ALBUMIN 3.6 g/dl (3.4-5.0); BILIRUBIN,TOTAL 0.7 mg/dL (0.2-1); BLOOD UREA NITROGEN 9.7 mg/dL (7-18); CALCIUM 8.5 mg/dL (8.5-10.1); CREATININE 0.7 mg/dL (0.55-1.3); MAGNESIUM 1.9 mg/dL (1.8-2.4); POTASSIUM 4.2 mmol/L (3.5-5.1); TOT PROT 6.6 g/dl (6.4-8.2)
[2020-06-14 09:25] LABS: BASO % 0.8 % (0-2.0); EOS % 2.8 % (0-4.5); HEMOGLOBIN 15.5 GM/dL (11.7-16.9); LYMPH % 42.2 % (8-40); MCH 30.6 pg (25.7-33.7); MCHC 33.7 g/dl (32.0-35.9); MEAN CELL VOLUME 90.8 fl (80-96); MEAN PLT VOLUME 9.9 fl (7.5-11.1); MONO % 8.4 % (3.8-10.2); NEUT % 45.8 % (42.8-82.8); PLATELET COUNT 167 K/MM3 (134-434); RBC 5.07 M/mm3 (4.00-5.60); WHITE BLOOD COUNT 7.9 K/mm3 (4.0-10.0)
[2020-06-14] MEDS ORDERED: BISACODYL 10 MG SUPP.RECT PR ONE (10:45)
[2020-06-14] MEDS ORDERED: POLYETHYLENE GLYCOL 3350 119 GM BTL PO ONE (10:54)
[2020-06-14] MEDS ORDERED: cefTRIAXone SODIUM 1 GM VIAL ONE (11:32)
[2020-06-14] MEDS ORDERED: DEXTROSE 5%-WATER - 50 ML IVPB ONE (11:32)
[2020-06-14] MEDS: HEPARIN NA (PORCINE) 5,000 UNITS/ML 1ML VIAL SQ SCH (11:35)
[2020-06-14] MEDS: CEFTRIAXONE 1 GM in DEXTROSE 5%-WATER - 50 ML IVPB SCH (11:35)
[2020-06-14] MEDS: TAMSULOSIN HCL 0.4 MG CAP PO SCH (11:35)
[2020-06-14] MEDS: NICOTINE 14 MG/24 HOURS TOPICAL PATCH TD SCH (11:35)
[2020-06-14] MEDS ORDERED: INSULIN (NOVOLOG) ASPART 100 UNITS/ML 10ML VIAL ONE (12:04)
--- NOTE | 2020-06-14 12:38 | DS ---
Physical Exam: SUBJECTIVE: Patient seen and examined OBJECTIVE: Patient is a 55 y/o male with a PMHx of NIDDM, hospitalized for DKA 10 yrs ago. Who presents to the ED with right flank pain, dysuria, burning x 4 days, dark brown urine x 1 day. Patients urinary frequency and a change in his urine stream. Patient denies fever, chills, cough, SOB, dizziness, BENOIT, CP, palpitations, N/V/D, constipation, melena, hematochezia. Patient denies sick contacts. He reports recent travel from the [place] 4 weeks ago. He reports taking Met[place] for [place] does not take it consistently. Patient to be discharged home today with follow up with Dr. Garcia as an outpatient. Patient is uninsured at this time, no PCP. An appointment has been made for him as follows: doctor: Dr. Small Time: 10.a.m on June 24 2020 Bring: $150 and your discharge paperwork Address: [address] [place] [address] 1st floor [address] Vital Signs Period Temp Pulse Resp BP Sys/Mckeon Pulse Ox Last 24 Hr 98.5 F-98.7 F 69-77 18-18 114-119/66-75 96-97 PHYSICAL EXAM GENERAL: The patient is awake, alert, and fully oriented, in no acute distress. HEAD: Normal with no signs of trauma. EYES: PERRL, extraocular movements intact, sclera anicteric, conjunctiva clear. No ptosis. ENT: Ears normal, nares patent, oropharynx clear without exudates, moist mucous membranes. NECK: Trachea midline, full range of motion, supple. LUNGS: Breath sounds equal, clear to auscultation bilaterally, no wheezes HEART: Regular rate and rhythm, S1, S2 without murmur, rub or gallop. ABDOMEN: Soft, nontender, nondistended, normoactive bowel sounds EXTREMITIES: no edema. NEUROLOGICAL: Normal speech, gait not observed. PSYCH: Normal mood, normal affect. SKIN: Warm, dry, normal turgor, no rashes or lesions noted LABS Laboratory Results - last 24 hr 06/13/20 06/13/20 06/14/20 16:52 21:34 05:43 WBC RBC Hgb Hct MCV MCH MCHC RDW Plt Count MPV Absolute Neuts (auto) Neutrophils % Lymphocytes % Monocytes % Eosinophils % Basophils % Nucleated RBC % Sodium Potassium Chloride Carbon Dioxide Anion Gap BUN Creatinine Est GFR (CKD-EPI)AfAm Est GFR (CKD-EPI)NonAf POC Glucometer 184 205 184 Random Glucose Calcium Magnesium Total Bilirubin AST ALT Alkaline Phosphatase Total Protein Albumin 06/14/20 06/14/20 06/14/20 08:07 08:07 12:02 WBC 7.9 RBC 5.07 Hgb 15.5 Hct 46.0 MCV 90.8 MCH 30.6 MCHC 33.7 RDW 13.0 Plt Count 167 MPV 9.9 Absolute Neuts (auto) 3.6 Neutrophils % 45.8 Lymphocytes % 42.2 H Monocytes % 8.4 Eosinophils % 2.8 Basophils % 0.8 Nucleated RBC % 0 Sodium 139 Potassium 4.2 Chloride 106 Carbon Dioxide 26 Anion Gap 6 L BUN 9.7 Creatinine 0.7 Est GFR (CKD-EPI)AfAm 124.00 Est GFR (CKD-EPI)NonAf 106.99 POC Glucometer 178 Random Glucose 173 H Calcium 8.5 Magnesium 1.9 Total Bilirubin 0.7 AST 14 L ALT 28 Alkaline Phosphatase 71 Total Protein 6.6 Albumin 3.6 HOSPITAL COURSE: Date of Admission:06/11/20 Date of Discharge: 06/14/20 Minutes to complete discharge: 45 Discharge Summary Problems reviewed: Yes Reason For Visit: DYSURIA, FLANK PAIN, CALCULUS OF RIGHT URETER Current Active Problems Diabetes mellitus (Acute) Dysuria (Acute) Encounter for screening laboratory testing for COVID-19 virus (Acute) Flank pain (Acute) Hydronephrosis (Acute) UTI (urinary tract infection) (Acute) Ureteral calculus, right (Acute) Condition: Improved - Instructions Diet, Activity, Other Instructions: Mr Duran You were admitted for kidney stone. You were seen by the urologist and a repeat kidney ultrasound was done which showed you no longer had a stone. Please follow up with Dr. Garcia by calling his office for a follow up appointment. Please drink at least 6-8 glasses of water per day. Since you do not have a primary care doctor, we have made an appointment for you as follows; Dr. Small Time: 10.a.m on June 24 2020 Bring: $150 and your discharge paperwork Address: [address] [place] [address] [address] [address] Your diabetes is not yet controlled. Controlling your diabetes is important to prevent rivera or heart problems. We have started you on Levemir 5units ONCE per day, take it at 8am with food. START Metformin 750mg TWICE per day at 8am and 8pm Please follow up with your primary care doctor for close diabetic monitoring. It is important that you use the glucometer device and test your blood sugar 15 minutes before meals. Write the number down and keep a record of it. Bring this information with you to your primary care doctor. Your insulin and metformin may need to be adjusted. Thank you. Referrals: [facility] [place] [Provider Group] (Dr. Small Time: 10.a.m on June 24 2020 Bring: $150 and your discharge paperwork) Jose A Garcia MD [Staff Physician] - (Please call for an appointment) Disposition: HOME - Home Medications Comprehensive Discharge Medication List: Ambulatory Orders Alcohol Antiseptic Pads [Alcohol Swabs] 1 each TP TID #1 box 06/14/20 Insulin (Levemir) [Levemir Vial] 5 units SQ HS #1 vial 06/14/20 Insulin Detemir [Levemir Flextouch] 5 unit SQ HS #2 insuln.pen 06/14/20 Miscellaneous Medical Supply [Glucometer Device] 1 each SQ ASDIR #1 kit 06/14/20 Miscellaneous Medical Supply [Glucometer Test Strips #100] 1 each SCJ ASDIR #1 box 06/14/20 [place], Disposable [[place]] 1 each MC TID #1 box 06/14/20 Pantoprazole Sodium [Protonix] 40 mg PO DAILY #30 tablet. 06/14/20 metFORMIN HCL [Metformin HCl] 850 mg PO BID #60 tablet 06/14/20 Problem List - Problems (1) Ureteral calculus, right Assessment/Plan: Spiral CT image, report reviewed-minimal right hydronephrosis secondary to a 7 mm mid to distal right ureteral stone. Punctate left renal stone Renal US image, report reviewed- Normal Kidneys on IVF Flomax was for a cysto and lithotripsy but repeat kidney imaging showed no further stone and mld right hydronephrosis Code(s): N20.1 - CALCULUS OF URETER (2) Diabetes mellitus Assessment/Plan: patient uses metformin which he buys from his friends but does not use it consistently, has no PCP or anyone to follow his diabetes. encouraged him to attend our clinic at [facility] on d/c, he agrees to. an appointment has been made for him as follows: Dr. Small Time: 10.a.m on June 24 2020 Bring: $150 to pay for the cost of visit and bring your discharge paperwork Address: [address] [place] [address] 1st floor [id number] for home levemir 5units at 8am and metformin 750mg bid will need repeat hga1c as an outpatient to assure diabetes better controlled. Code(s): E11.9 - TYPE 2 DIABETES MELLITUS WITHOUT COMPLICATIONS (3) Dysuria Code(s): R30.0 - DYSURIA (4) Encounter for screening laboratory testing for COVID-19 virus Assessment/Plan: serology negative Code(s): Z11.59 - ENCOUNTER FOR SCREENING FOR OTHER VIRAL DISEASES (5) Flank pain Assessment/Plan: resolved Code(s): R10.9 - UNSPECIFIED ABDOMINAL PAIN (6) Hydronephrosis Assessment/Plan: right mild hydro, no kidney stone visualized will need outpatient follow up with urology cotinue flomax 0.4mg daily Code(s): N13.30 - UNSPECIFIED HYDRONEPHROSIS (7) UTI (urinary tract infection) Assessment/Plan: on ceftriaxone but discontinued as UC negative Code(s): N39.0 - URINARY TRACT INFECTION, SITE NOT SPECIFIED This patient is new to me today: No Emergency Visit: Yes ED Registration Date: 06/11/20 Care time: The patient presented to the Emergency Department on the above date and was hospitalized for further evaluation of their emergent condition. Critical Care patient: No - Discharge Referral [facility]erred to [facility] No
[2020-06-14 13:09] VITALS: BP 122/72
== END 2020-06-14 15:25 | disposition home or self-care (01) | DRG 463 ==
LOC: JER 23:57 → JERBED 06-11 05:18 → J6S 06-11 23:37
PROVIDERS: ADMIT Internal Medicine; ATTEND Nurse Practitioner Family
DX: N13.6 Pyonephrosis (principal); E11.9 Type 2 diabetes mellitus without complications; Z11.59 Encounter for screening for other viral diseases; D72.829 Elevated white blood cell count, unspecified; R10.9 Unspecified abdominal pain; R30.0 Dysuria
CPT/HCPCS: 36415; 71045-TC-FY; 74176-TC; 76775-TC; 76856-TC; 80053; 81003; 82550; 82962; 83036; 83735; 85025; 85610; 87086; 90732; 93005; 93010; 99285-25; G0009; J1644; U0003

== ENCOUNTER 2020-06-18 23:46 | Inpatient (IN) | payer OTHER ==
--- NOTE | 2020-06-19 01:31 | PDOC ---
Attending Attestation - Resident Resident Name: LibradoToro - ED Attending Attestation I have performed the following: I have examined & evaluated the patient, The case was reviewed & discussed with the resident, I agree w/resident's findings & plan - HPI HPI: 06/19/20 05:02 see resident hpi - Physicial Exam PE: 06/19/20 05:02 see resident exam - Medical Decision Making 06/19/20 05:02 55-year-old male with history of kidney stones here with persistent pain after being told recent stone has passed CT scan of the abdomen and pelvis shows a persistent 7 mm right ureteral stone with minimal movement from previous imaging mild perinephric stranding Plan for Rocephin 1 g IV piggyback and admission for further management Neurology consult Discharge - Discharge Information Problems reviewed: Yes Clinical Impression/Diagnosis: Ureteral calculus, right Condition: Stable - Follow up/Referral - Patient Discharge Instructions - Post Discharge Activity
[2020-06-19] MEDS ORDERED: SODIUM CHLORIDE 0.9% 500 ML INFUS.BAG IV ONE (01:45)
[2020-06-19] MEDS ORDERED: KETOROLAC TROMETHAMINE 15 MG/ML VIAL IVPUSH ONE ×2 (01:45→21:37)
--- NOTE | 2020-06-19 01:52 | PDOC ---
History of Present Illness - General Chief Complaint: Pain, Acute Stated Complaint: BACK PAIN Time Seen by Provider: 06/19/20 01:23 History Source: Patient, Old Records Exam Limitations: No Limitations - History of Present Illness Initial Comments: 06/19/20 01:48 HPI: 55 yo M pmh kidney stones, diabetes, presenting with right flank pain c/w pain from a stone for which he was recently admitted for. Gilma is sharp, located in the right flank, radiates to the groin. Denies fevers, chills, nausea, vomiting, dysuria, weakness. HAs not taken any medications for pain because "they didn't tell me I could" and was discharged with the understanding "the stone was gone." Pain recurred today at 2:30 in the afternoon. Denies diarrhea, constipation, any other pains, chest pain, shortness of breath. Patient has yet to follow up with Dr. Small and Dr. Jose A Garcia. Repeat ultrasound on 06/13 before discharge demonstrated development of hydronephrosis during admission. Pain improved and did not recur for 6 days. Meds: Per chart All: NKDA Past History - Travel History Traveled outside of the country in the last 30 days: No Close contact w/someone who was outside of country & ill: No - Medical History Allergies/Adverse Reactions: Allergies Allergy/AdvReac Type Severity Reaction Status Date / Time No Known Allergies Allergy Verified 06/11/20 00:20 Home Medications: Ambulatory Orders Alcohol Antiseptic Pads [Alcohol Swabs] 1 each TP TID #1 box 06/14/20 Insulin (Levemir) [Levemir Vial] 5 units SQ HS #1 vial 06/14/20 Insulin Detemir [Levemir Flextouch] 5 unit SQ HS #2 insuln.pen 06/14/20 Miscellaneous Medical Supply [Glucometer Device] 1 each SQ ASDIR #1 kit 06/14/20 Miscellaneous Medical Supply [Glucometer Test Strips #100] 1 each SCJ ASDIR #1 box 06/14/20 [place], Disposable [[place]] 1 each MC TID #1 box 06/14/20 Pantoprazole Sodium [Protonix] 40 mg PO DAILY #30 tablet.dr 06/14/20 Tamsulosin HCl [Flomax] 0.4 mg PO DAILY #30 cap.er.24h 06/14/20 metFORMIN HCL [Metformin HCl] 850 mg PO BID #60 tablet 06/14/20 Diabetes: Yes (NIDDM) - Psycho-Social/Smoking History Smoking History: Current every day smoker Information on smoking cessation initiated: Yes - Substance Abuse Hx (Audit-C & DAST Scrn) How often the patient has a drink containing alcohol: Monthly or less Score: In Men: 4 or > Positive; In Women: 3 or > Positive: 1 Screen Result (Pos requires Nsg. Audit-10AR): Negative Review of Systems - Review of Systems Able to Perform ROS?: Yes Is the patient limited Korean proficient: Yes Constitutional: No: Chills, Diaphoresis, Fever, Weakness HEENTM: No: Recent change in vision, Nose Congestion, Throat Pain Respiratory: No: Cough, Shortness of Breath Cardiac (ROS): No: Chest Pain, Lightheadedness, Palpitations ABD/GI: No: Constipated, Diarrhea, Nausea, Vomiting : Yes: Flank Pain. No: Burning, Dysuria, Frequency Musculoskeletal: No: Back Pain, Muscle Pain, Muscle Weakness Integumentary: No: Bruising, Pruritus, Rash Neurological: No: Headache, Numbness, Tingling, Weakness Psychiatric: No: Stressors, Change in Appetite Endocrine: No: Increased Hunger, Increased Thirst, Change in Weight Hematologic/Lymphatic: No: Anemia, Blood Clots, Easy Bleeding All Other Systems: Reviewed and Negative *Physical Exam - Vital Signs Last Vital Signs Temp Pulse Resp BP Pulse Ox 98.4 F 74 16 138/89 100 06/19/20 01:11 06/19/20 01:11 06/19/20 01:11 06/19/20 01:11 06/19/20 01:11 - Physical Exam 06/19/20 02:06 Vitals reviewed, AFVSS GEN: Well appearing, appears stated age, NAD, comfortable. AAOx3. HEENT: NCAT, EOMI, PERRL. Sclera anicteric, non-injected. No facial asymmetry. Moist mucous membranes. Normal voice. Trachea midline. CV: RRR, S1/S2, no murmurs / rubs / gallops appreciated. LUNG: CTABL, normal work of breathing. No wheezes, rales, rhonchi. No cough. Speaking full sentences. GI: Soft, NTND, +BS, no guarding, no rebound. Neg CVA. No masses. EXTREMITIES: 2+ distal pulses. No clubbing / cyanosis / edema. No gross deformity in any extremity. SKIN: Warm, dry, no rashes appreciated, non-jaundiced. PSYCH: Normal mood and affect. Cooperative and appropriate. NEURO: CN grossly intact. Moving all extremities well. Normal strength and sensation grossly. ED Treatment Course - LABORATORY CBC & Chemistry Diagram: 06/19/20 02:04 06/19/20 02:04 Medical Decision Making - Medical Decision Making 06/19/20 01:52 55 yo M pmh kidney stones, diabetes, presenting with right flank pain c/w pain from a stone for which he was recently admitted for. History reassuring for absence of fevers, chills, nausea, vomiting, weakness, dysuria / foul odor / funny colors. Exam notable for non-tender abdomen, sleeping comfortably in his stretcher, normal vitals. Concerning for most likely stone, history not c/w UTI / pyelo / obstruction. Patient without insurance, with follow up appointments and providers arranged. - CBC, CMP - UA - Toradol - 1L NS 06/19/20 05:12 - 7mm right sided obstructing kidney stone on CT without advancement since prior, worsenign hydro - Rocephin ordered - Spoke with Dr. Jose A Garcia - Flomax - Patient NPO for intervention this AM 06/19/20 06:52 -Endorsed to inpatient team Admitted Med/Surg Discharge - Discharge Information Problems reviewed: Yes Clinical Impression/Diagnosis: Ureteral calculus, right Condition: Stable - Admission Yes - Follow up/Referral - Patient Discharge Instructions - Post Discharge Activity
[2020-06-19] MEDS ORDERED: KETOROLAC TROMETHAMINE 15 MG/ML VIAL ONE (02:08)
[2020-06-19 02:30] LABS: EOS % 2.3 % (0-4.5); HEMATOCRIT 45.4 % (35.4-49); HEMOGLOBIN 15.3 GM/dL (11.7-16.9); LYMPH % 30.4 % (8-40); MCH 31.2 pg (25.7-33.7); MCHC 33.8 g/dl (32.0-35.9); MEAN CELL VOLUME 92.4 fl (80-96); MEAN PLT VOLUME 9.8 fl (7.5-11.1); MONO % 9.2 % (3.8-10.2); NEUT % 57.1 % (42.8-82.8); PLATELET COUNT 163 K/MM3 (134-434); RBC 4.91 M/mm3 (4.00-5.60); RDW 13.2 % (11.9-15.9); WHITE BLOOD COUNT 10.7 K/mm3 (4.0-10.0)
[2020-06-19 02:51] LABS: BILIRUBIN,TOTAL 0.6 mg/dL (0.2-1); BLOOD UREA NITROGEN 14.8 mg/dL (7-18); CALCIUM 9.2 mg/dL (8.5-10.1); CREATININE 1.2 mg/dL (0.55-1.3); POTASSIUM 4.1 mmol/L (3.5-5.1)
[2020-06-19] MEDS ORDERED: CEFTRIAXONE 1 GM in DEXTROSE 5%-WATER - 100 ML IVPB ONE (05:02)
[2020-06-19] MEDS ORDERED: TAMSULOSIN HCL 0.4 MG CAP PO ONE (05:13)
[2020-06-19] MEDS ORDERED: SODIUM CHLORIDE 1,000 ML IV SCH ×2 (05:15→06:45)
--- NOTE | 2020-06-19 06:15 | PN ---
Teaching Attending Note Name of Resident: Jacy Easton ATTENDING PHYSICIAN STATEMENT I saw and evaluated the patient. I reviewed the resident's note and discussed the case with the resident. I agree with the resident's findings and plan as documented. SUBJECTIVE: 55yoM with history of T2DM and recent hospitalization 06/11- with right ureteral stone and hydronephrosis who presents with recurrence of symptoms. Patient presented on 06/11 with severe right flank pain and brown colored urine. CT at the time showed 3mm distal right ureteral stone with minimal hydroureteronephrosis. Patient was planned for lithotripsy and ureteral stent but repeat imaging by renal US showed no evidence of stone and procedure was deferred. He returns due to recurrence of flank pain. Urine is clear, no fever/chills, nausea, or vomiting. Afebrile and hemodynamically stable in the ED. Labs notable for creatinine 1.2 from 0.7 at time of discharge. Prelim read of CT abd/pelvis showed worsening mild to moderate right hydronephrosis and perinephric edema secondary to a 7mm mid-distal right ureteral stone, only minimally progressed since the prior exam. Patient received Toradol and 1L NS and is admitted for further management. OBJECTIVE: Vital Signs (72 hours) 06/19/20 01:11 Temperature 98.4 F Pulse Rate 74 Respiratory 16 Rate Blood Pressure 138/89 O2 Sat by Pulse 100 Oximetry (%) EXAM Gen: awake, alert, NAD HEENT: NC/AT. MMM CV: RRR, no MRG Resp: CTAB, unlabored Abd: Soft, NT, ND. +Bowel sounds MSK: +CVA tenderness on the right Ext: No edema. Healing scabs bilateral shins Psych: AOx3, appropriate mood/affect Laboratory Results - last 24 hr 06/19/20 06/19/20 02:04 02:04 WBC 10.7 H RBC 4.91 Hgb 15.3 Hct 45.4 MCV 92.4 MCH 31.2 MCHC 33.8 RDW 13.2 Plt Count 163 MPV 9.8 Absolute Neuts (auto) 6.1 Neutrophils % 57.1 D Lymphocytes % 30.4 D Monocytes % 9.2 Eosinophils % 2.3 Basophils % 1.0 Nucleated RBC % 0 Sodium 137 Potassium 4.1 Chloride 102 Carbon Dioxide 27 Anion Gap 9 BUN 14.8 Creatinine 1.2 Est GFR (CKD-EPI)AfAm 78.98 Est GFR (CKD-EPI)NonAf 68.14 Random Glucose 145 H Calcium 9.2 Total Bilirubin 0.6 AST 14 L ALT 33 Alkaline Phosphatase 75 Total Protein 7.0 Albumin 4.0 ASSESSMENT AND PLAN: 55yoM with history of T2DM and recent hospitalization 06/11-4 with right ureteral stone and hydronephrosis who presents with recurrence of flank pain, now with worsening hydronephrosis. Right ureteral stone and hydronephrosis 7mm, mid-distal right ureter with worsening hydronephrosis compared to prior admission on prelim read Prelim read of CT on 06/11 also read as 7mm stone but overread in AM as 3mm No recurrence of hematuria UA pending - IVF - continue tamsulosin - strain urine - UA - hold ceftriaxone pending UA - urology consult - NPO pending possible procedure FLORI Creatinine 1.2 from 0.7 last week; suspect obstructive etiology given hydronephrosis as above - urology consult - trend - avoid nephrotoxic meds T2DM: ISS DVT ppx: SCD pending procedure
--- NOTE | 2020-06-19 06:30 | HP ---
CHIEF COMPLAINT: back pain PCP: Dr. Auguste HISTORY OF PRESENT ILLNESS: 55yo M with PMHx of DM and recent admission for a R kidney stone who presents with R back pain. Was admitted for nephrolithiasis earlier this month, he was supposed to undergo a procedure but then it seemed that he passed the stone. However, the pain persisted after discharge, which prompted the patient to return to the ED. Patient endorsed R back pain and some dysuria, but denied any other associated symptoms. ER course was notable for: (1) WBC 10.7 (2) CT abdomen and pelvis: worsening hydronephrosis with perinephric edema, R 7mm ureteral stone, punctate L renal stone, gallstone Recent Travel: [facility] November - April 2020 PAST MEDICAL HISTORY: per HPI PAST SURGICAL HISTORY: "cyst on bottom" Family History: father was shot many years ago in the [facility] mother has severe arthritis siblings and children are healthy Social History: Smokinppd for ~20 years Alcohol: denied Drugs: denied Work: worked in a [employer], currently not working Home: lives with his daughter Allergies No Known Allergies Allergy (Verified 06/11/20 00:20) HOME MEDICATIONS: Home Medications Medication Instructions Recorded Alcohol Antiseptic Pads [Alcohol 1 each TP TID #1 box 06/14/20 Swabs] Insulin (Levemir) [Levemir Vial] 5 units SQ HS #1 vial 06/14/20 Insulin Detemir [Levemir Flextouch] 5 unit SQ HS #2 insuln.pen 06/14/20 Miscellaneous Medical Supply 1 each SQ ASDIR #1 kit 06/14/20 [Glucometer Device] Miscellaneous Medical Supply 1 each SCJ ASDIR #1 box 06/14/20 [Glucometer Test Strips #100] [place], Disposable [[place]] 1 each MC TID #1 box 06/14/20 Pantoprazole Sodium [Protonix] 40 mg PO DAILY #30 tablet. 06/14/20 Tamsulosin HCl [Flomax] 0.4 mg PO DAILY #30 cap.er.24h 06/14/20 metFORMIN HCL [Metformin HCl] 850 mg PO BID #60 tablet 06/14/20 REVIEW OF SYSTEMS as per HPI PHYSICAL EXAMINATION Vital Signs - 24 hr 06/19/20 01:11 Temperature 98.4 F Pulse Rate 74 Respiratory 16 Rate Blood Pressure 138/89 O2 Sat by Pulse 100 Oximetry (%) GENERAL: M, average body habitus, AAOx4 showing no signs of acute distress HEAD: Normal with no signs of trauma, good dentition EYES:extraocular movements intact bilaterally EARS, NOSE, THROAT: Moist mucous membranes. LUNGS: CTAB. No wheezes appreciated HEART: RRR, normal S1 and S2 without murmur ABDOMEN: Soft, nontender to palpation, somewhat protuberant, active bowel sounds, no guarding MUSCULOSKELETAL: R CVA tenderness, L side nontender EXTREMITIES: 2+ radial and dorsalis pedis pulses, warm to touch bilaterally, nontender to palpation, no peripheral edema appreciated NEUROLOGICAL: Cranial nerves II-XII grossly intact. Normal speech with symmetricalfacial movements PSYCHIATRIC: Cooperative and interactive, responds appropriately. Good eye con tact SKIN: scattered rash on bilateral lower legs (bug bites?) Laboratory Results - last 24 hr 06/19/20 06/19/20 02:04 02:04 WBC 10.7 H RBC 4.91 Hgb 15.3 Hct 45.4 MCV 92.4 MCH 31.2 MCHC 33.8 RDW 13.2 Plt Count 163 MPV 9.8 Absolute Neuts (auto) 6.1 Neutrophils % 57.1 D Lymphocytes % 30.4 D Monocytes % 9.2 Eosinophils % 2.3 Basophils % 1.0 Nucleated RBC % 0 Sodium 137 Potassium 4.1 Chloride 102 Carbon Dioxide 27 Anion Gap 9 BUN 14.8 Creatinine 1.2 Est GFR (CKD-EPI)AfAm 78.98 Est GFR (CKD-EPI)NonAf 68.14 Random Glucose 145 H Calcium 9.2 Total Bilirubin 0.6 AST 14 L ALT 33 Alkaline Phosphatase 75 Total Protein 7.0 Albumin 4.0 ASSESSMENT/PLAN: 55yo M with PMHx of DM and recent admission for a R kidney stone who presents with R back pain and is admitted for further management of his nephrolithiasis. Nephrolithiasis - hold abx pending UA and Urine culture - IVF 125cc/h NS - keep NPO - urology consult - strain urine DM - BGMs ACHS - ISS - hold home metformin FEN - 125cc/h NS - replete lytes PRN - NPO PPX - DVT: SCDs Dispo: medSurg Family Medical History Family History: As Documented Visit type - Emergency Visit Emergency Visit: Yes Care time: The patient presented to the Emergency Department on the above date and was hospitalized for further evaluation of their emergent condition. - New Patient This patient is new to me today: Yes Date on this admission: 06/19/20 - Critical Care Critical Care patient: No ATTENDING PHYSICIAN STATEMENT I saw and evaluated the patient. I reviewed the resident's note and discussed the case with the resident. I agree with the resident's findings and plan as documented. SUBJECTIVE: OBJECTIVE: ASSESSMENT AND PLAN:
[2020-06-19] MEDS ORDERED: TAMSULOSIN HCL 0.4 MG CAP ONE (07:07)
[2020-06-19] MEDS ORDERED: CEFTRIAXONE 1 GM/50 ML BAG ONE (07:08)
[2020-06-19 12:56] LABS: EPI CELLS 2 /uL (0-25.1); HYALINE CASTS 0 /uL (0-3.1); PH,URINE 5.5 (5.0-8.0); URINE APPEARANCE CLEAR; URINE BACTERIA 2544 /uL (0-1359); URINE BILIRUBIN NEGATIVE (NEGATIVE); URINE COLOR YELLOW; URINE GLUCOSE (UA) NEGATIVE (NEGATIVE); URINE KETONE NEGATIVE (NEGATIVE); URINE LEUK ESTERASE NEGATIVE (NEGATIVE); URINE NITRITE NEGATIVE (NEGATIVE); URINE PROTEIN NEGATIVE (NEGATIVE); URINE RBC 1 /uL (0-23.9); URINE UROBILINOGEN 0.2 mg/dL (0.2-1.0); URINE WBC 6 /uL (0-25.8)
[2020-06-19] MEDS: INSULIN SLIDING SCALE (NOVOLOG) 1 VIAL SQ SCH ×3 (13:32→22:26)
[2020-06-19] MEDS ORDERED: ONDANSETRON 4 MG/2 ML VIAL IVPUSH PRN ×2 (15:56→18:11)
[2020-06-19] MEDS ORDERED: LACTATED RINGERS SOLUTION 1,000 ML IV SCH ×3 (16:00→19:30)
[2020-06-19] MEDS ORDERED: PROPOFOL 20 ML ONE (16:00)
[2020-06-19] MEDS ORDERED: LIDOCAINE HCL/PF 2% SDV 5ML VIAL ONE ×2 (16:00)
[2020-06-19] MEDS ORDERED: EPHEDRINE SULFATE/0.9% NACL/PF 50 MG/10 ML SYRINGE NR ONE (16:01)
[2020-06-19] MEDS ORDERED: DEXAMETHASONE SOD PHOSPHATE 4 MG/1 ML VIAL ONE (16:02)
[2020-06-19] MEDS ORDERED: ceFAZolin SODIUM 1 GM VIAL IVPB ONE (16:40)
[2020-06-19] MEDS ORDERED: ceFAZolin SODIUM 1 GM VIAL ONE (16:50)
[2020-06-19] MEDS ORDERED: GLYCOPYRROLATE 0.2 MG/1 ML VIAL ONE (16:50)
[2020-06-19] MEDS ORDERED: DESFLURANE GAS 240 ML BOTTLE IH ONE (16:51)
[2020-06-19] MEDS ORDERED: KETOROLAC TROMETHAMINE 30 MG/1 ML VIAL ONE (17:04)
--- NOTE | 2020-06-19 17:54 | OP ---
Operative Note - Note: Operative Date: 06/19/20 Pre-Operative Diagnosis: Obs uropathy, Right Hydronephrosis. Right lower ureteral calculus Operation: Cysto retro attempted stent, ureteroscopy unsuccessful Findings: Impacted ureteral calculus with J hooking Post-Operative Diagnosis: Same as Pre-op Surgeon: Lei Shahid Anesthesia: General Operative Report Dictated: Yes
[2020-06-19] MEDS: SODIUM CHLORIDE 1,000 ML IV SCH (19:26)
[2020-06-19] MEDS ORDERED: INSULIN (LEVEMIR) 100 UNITS/ML UNITS SQ SCH (22:00)
[2020-06-19] MEDS: INSULIN (LEVEMIR) 100 UNITS/ML UNITS SQ SCH (22:12)
--- NOTE | 2020-06-19 22:54 | OP ---
DATE OF OPERATION: 06/19/2020 SURGEON: Lei Shahid MD. ANESTHESIA: General. PREOPERATIVE DIAGNOSIS: Right hydronephrosis. Impacted right lower ureter calculus. POSTOPERATIVE DIAGNOSIS: Right hydronephrosis. Impacted right lower ureter calculus. PROCEDURE: Cystoscopy, attempted attempted retrograde unsuccessful. FINDINGS: Severely edematous right ureteral orifice and impacted calculus in the lower ureter unable to bypass the calculus because of guidewire. DESCRIPTION OF PROCEDURE: Patient placed in lithotomy position under anesthesia, was prepped and draped in the usual manner. Using 22 scope, cystoscopy performed, an attempt was made to catheterize the right ureteral orifice, was not successful. A retrograde was attempted, but no contrast would go beyond the calculus. Then attempt was made using the ureteroscope which was also not successful. The procedure was abandoned, and order was placed for percutaneous nephrostomy on the right side, and De La Rosa catheter was placed. The patient tolerated the procedure well, left the operating room under satisfactory condition. Ambar [id number]
[2020-06-20] MEDS: SODIUM CHLORIDE 1,000 ML IV SCH ×3 (06:19→21:38)
[2020-06-20] MEDS: INSULIN SLIDING SCALE (NOVOLOG) 1 VIAL SQ SCH ×4 (06:20→21:42)
[2020-06-20 08:27] LABS: BASO % 0.4 % (0-2.0); EOS % 0.3 % (0-4.5); HEMATOCRIT 39.9 % (35.4-49); HEMOGLOBIN 13.7 GM/dL (11.7-16.9); LYMPH % 17.4 % (8-40); MCH 31.4 pg (25.7-33.7); MCHC 34.3 g/dl (32.0-35.9); MEAN CELL VOLUME 91.7 fl (80-96); MEAN PLT VOLUME 10.6 fl (7.5-11.1); MONO % 6.7 % (3.8-10.2); NEUT % 75.2 % (42.8-82.8); PLATELET COUNT 169 K/MM3 (134-434); RBC 4.35 M/mm3 (4.00-5.60); RDW 13.3 % (11.9-15.9)
[2020-06-20] MEDS ORDERED: TAMSULOSIN HCL 0.4 MG CAP PO SCH (08:30)
[2020-06-20 08:33] LABS: ALBUMIN 2.9 g/dl (3.4-5.0); BILIRUBIN,TOTAL 0.7 mg/dL (0.2-1); CALCIUM 8.2 mg/dL (8.5-10.1); CREATININE 0.8 mg/dL (0.55-1.3); MAGNESIUM 1.8 mg/dL (1.8-2.4); POTASSIUM 4.4 mmol/L (3.5-5.1); TOT PROT 5.5 g/dl (6.4-8.2)
[2020-06-20] MEDS: TAMSULOSIN HCL 0.4 MG CAP PO SCH (08:50)
[2020-06-20] MEDS ORDERED: CEFTRIAXONE 1 GM in DEXTROSE 5%-WATER - 50 ML IVPB SCH (10:00)
[2020-06-20 10:20] LABS: INR 1.33 (0.83-1.09); PROTHROMBIN TIME (PATIENT) 15.7 SEC (9.7-13.0)
[2020-06-20] MEDS: KETOROLAC TROMETHAMINE 30 MG/1 ML VIAL IVPUSH PRN (10:42)
[2020-06-20] MEDS ORDERED: cefTRIAXone SODIUM 1 GM VIAL ONE (10:52)
[2020-06-20] MEDS ORDERED: DEXTROSE 5%-WATER - 50 ML IVPB ONE (10:52)
[2020-06-20] MEDS: CEFTRIAXONE 1 GM in DEXTROSE 5%-WATER - 50 ML IVPB SCH (10:54)
--- NOTE | 2020-06-20 11:11 | PN ---
Physical Exam: SUBJECTIVE: Patient seen and examined at bedside. Feels pain is adequately managed. Waiting for transport to IR. OBJECTIVE: Vital Signs Period Temp Pulse Resp BP Sys/Mckeon Pulse Ox Last 24 Hr 97.8 F-98.8 F 62-92 13-20 105-148/60-85 95-100 GENERAL: The patient is awake, alert, and fully oriented, in no acute distress. LUNGS: Breath sounds equal, clear to auscultation bilaterally, no wheezes, no crackles, no accessory muscle use. HEART: Regular rate and rhythm, S1, S2 ABDOMEN: Soft, nontender, nondistended EXTREMITIES: 2+ pulses, warm, well-perfused, no edema. NEUROLOGICAL: Cranial nerves II through XII grossly intact. Normal speech Laboratory Results - last 24 hr 06/19/20 06/19/20 06/19/20 02:20 11:30 13:24 WBC RBC Hgb Hct MCV MCH MCHC RDW Plt Count MPV Absolute Neuts (auto) Neutrophils % Lymphocytes % Monocytes % Eosinophils % Basophils % Nucleated RBC % PT with INR INR Sodium Potassium Chloride Carbon Dioxide Anion Gap BUN Creatinine Est GFR (CKD-EPI)AfAm Est GFR (CKD-EPI)NonAf POC Glucometer 148 Random Glucose Calcium Magnesium Total Bilirubin AST ALT Alkaline Phosphatase Total Protein Albumin Urine Color Yellow Urine Appearance Clear Urine pH 5.5 D Ur Specific [place] 1.006 L Urine Protein Negative Urine Glucose (UA) Negative Urine Ketones Negative Urine Blood Trace Urine Nitrite Negative Urine Bilirubin Negative Urine Urobilinogen 0.2 Ur Leukocyte Esterase Negative Urine WBC (Auto) 6 Urine RBC (Auto) 1 Urine Casts (Auto) 0 U Epithel Cells (Auto) 2 Urine Bacteria (Auto) 2544 COVID-19 (LUIS) Not detected 06/19/20 06/20/20 06/20/20 22:10 06:03 07:23 WBC 12.0 H RBC 4.35 Hgb 13.7 Hct 39.9 MCV 91.7 MCH 31.4 MCHC 34.3 RDW 13.3 Plt Count 169 MPV 10.6 Absolute Neuts (auto) 9.1 H Neutrophils % 75.2 D Lymphocytes % 17.4 D Monocytes % 6.7 Eosinophils % 0.3 D Basophils % 0.4 Nucleated RBC % 0 PT with INR INR Sodium Potassium Chloride Carbon Dioxide Anion Gap BUN Creatinine Est GFR (CKD-EPI)AfAm Est GFR (CKD-EPI)NonAf POC Glucometer 183 186 Random Glucose Calcium Magnesium Total Bilirubin AST ALT Alkaline Phosphatase Total Protein Albumin Urine Color Urine Appearance Urine pH Ur Specific [place] Urine Protein Urine Glucose (UA) Urine Ketones Urine Blood Urine Nitrite Urine Bilirubin Urine Urobilinogen Ur Leukocyte Esterase Urine WBC (Auto) Urine RBC (Auto) Urine Casts (Auto) U Epithel Cells (Auto) Urine Bacteria (Auto) COVID-19 (LUIS) 06/20/20 06/20/20 07:23 09:40 WBC RBC Hgb Hct MCV MCH MCHC RDW Plt Count MPV Absolute Neuts (auto) Neutrophils % Lymphocytes % Monocytes % Eosinophils % Basophils % Nucleated RBC % PT with INR 15.70 H INR 1.33 H Sodium 138 Potassium 4.4 Chloride 107 Carbon Dioxide 23 Anion Gap 8 BUN 11.0 Creatinine 0.8 Est GFR (CKD-EPI)AfAm 117.38 Est GFR (CKD-EPI)NonAf 101.27 POC Glucometer Random Glucose 161 H Calcium 8.2 L Magnesium 1.8 Total Bilirubin 0.7 AST 8 L ALT 20 Alkaline Phosphatase 58 Total Protein 5.5 L Albumin 2.9 L Urine Color Urine Appearance Urine pH Ur Specific [place] Urine Protein Urine Glucose (UA) Urine Ketones Urine Blood Urine Nitrite Urine Bilirubin Urine Urobilinogen Ur Leukocyte Esterase Urine WBC (Auto) Urine RBC (Auto) Urine Casts (Auto) U Epithel Cells (Auto) Urine Bacteria (Auto) COVID-19 (LUIS) ` Active Medications Generic Name Dose Route Start Last Admin Trade Name Freq PRN Reason Stop Dose Admin Ceftriaxone Sodium 1 gm/ 50 mls @ 100 mls/hr 06/20/20 10:00 06/20/20 10:54 Dextrose IVPB 100 mls/hr DAILY ABILIO Administration Protocol Sodium Chloride 1,000 mls @ 125 mls/hr 06/19/20 18:11 06/20/20 06:19 Normal Saline - IV 125 mls/hr ASDIR ABILIO Administration Insulin Aspart 1 vial 06/19/20 22:00 06/20/20 06:20 Novolog Vial Sliding Scale - SQ Not Given ACHS ABILIO Protocol Insulin Detemir 5 units 06/19/20 22:00 06/19/20 22:12 Levemir Vial SQ 5 units HS ABILIO Administration Ketorolac Tromethamine 30 mg 06/19/20 21:56 06/20/20 10:42 Toradol Injection - IVPUSH 06/24/20 21:55 30 mg Q4H PRN Administration PAIN LEVEL 7 - 10 Ondansetron HCl 4 mg 06/19/20 18:11 Zofran Injection IVPUSH Q6H PRN NAUSEA AND/OR VOMITING Tamsulosin HCl 0.4 mg 06/20/20 08:30 06/20/20 08:50 Flomax - PO 0.4 mg DAILY@0830 ABILIO Administration ASSESSMENT/PLAN: 55 year-old male with a PMH significant for Type II IDDM admitted for obstructing right ureteral calculus. Obstructing right ureteral calculus Right hydronephrosis Right hydroureter --06/19 CT spiral: 6mm distal right ureteral calculus with increased hydronephrosis and hydroureter since imaging on 06/11 --taken to OR and attempt to place stent unsuccessful due to impacted calculus with J hooking --plan is to go to IR today for placement of percutaneous nephrostomy tube Elevated creatinine, resolved --Cr 1.2 on admission, today 0.8 Type II IDDM --Levemir 5U qhs --Novolog sliding scale coverage FEN Fluids: NS@125mL/hr Electrolytes: replete as indicated Nutrition: NPO DVT prophylaxis: SCDs Dispo: continues to require inpatient care. Full code. Visit type - Emergency Visit Emergency Visit: Yes ED Registration Date: 06/19/20 Care time: The patient presented to the Emergency Department on the above date and was hospitalized for further evaluation of their emergent condition. - New Patient This patient is new to me today: Yes Date on this admission: 06/21/20 - Critical Care Critical Care patient: No
--- NOTE | 2020-06-20 18:15 | PN ---
Progress Note (short form) - Note Progress Note: POD 1 s/p cysto under GA. Doing well, no anesthetic issues/complications noted.
[2020-06-20] MEDS: INSULIN (LEVEMIR) 100 UNITS/ML UNITS SQ SCH (21:40)
[2020-06-21] MEDS: KETOROLAC TROMETHAMINE 30 MG/1 ML VIAL IVPUSH PRN (02:32)
--- NOTE | 2020-06-21 05:38 | PN ---
Physical Exam: SUBJECTIVE: Patient seen and examined. Reports minimal pain. Has rodríguez and perc drainage. OBJECTIVE: Vital Signs Period Temp Pulse Resp BP Sys/Mckeon Pulse Ox Last 24 Hr 98.4 F-98.8 F 64-83 15-20 110-120/56-67 94-96 GENERAL: The patient is awake, alert, and fully oriented, in no acute distress. LUNGS: Breath sounds equal, clear to auscultation bilaterally, no wheezes, no crackles, no accessory muscle use. HEART: Regular rate and rhythm, S1, S2 ABDOMEN: Soft, nontender, nondistended EXTREMITIES: 2+ pulses, warm, well-perfused, no edema. NEUROLOGICAL: Cranial nerves II through XII grossly intact. Normal speech : rodríguez draining clear urine, right percutaneous nephrostomy tube draining am stephen urine Laboratory Results - last 24 hr 06/19/20 06/20/20 06/20/20 11:30 06:03 07:23 WBC 12.0 H RBC 4.35 Hgb 13.7 Hct 39.9 MCV 91.7 MCH 31.4 MCHC 34.3 RDW 13.3 Plt Count 169 MPV 10.6 Absolute Neuts (auto) 9.1 H Neutrophils % 75.2 D Lymphocytes % 17.4 D Monocytes % 6.7 Eosinophils % 0.3 D Basophils % 0.4 Nucleated RBC % 0 PT with INR INR Sodium Potassium Chloride Carbon Dioxide Anion Gap BUN Creatinine Est GFR (CKD-EPI)AfAm Est GFR (CKD-EPI)NonAf POC Glucometer 186 Random Glucose Calcium Magnesium Total Bilirubin AST ALT Alkaline Phosphatase Total Protein Albumin COVID-19 (LUIS) Not detected 06/20/20 06/20/20 06/20/20 07:23 09:40 11:35 WBC RBC Hgb Hct MCV MCH MCHC RDW Plt Count MPV Absolute Neuts (auto) Neutrophils % Lymphocytes % Monocytes % Eosinophils % Basophils % Nucleated RBC % PT with INR 15.70 H INR 1.33 H Sodium 138 Potassium 4.4 Chloride 107 Carbon Dioxide 23 Anion Gap 8 BUN 11.0 Creatinine 0.8 Est GFR (CKD-EPI)AfAm 117.38 Est GFR (CKD-EPI)NonAf 101.27 POC Glucometer 126 Random Glucose 161 H Calcium 8.2 L Magnesium 1.8 Total Bilirubin 0.7 AST 8 L ALT 20 Alkaline Phosphatase 58 Total Protein 5.5 L Albumin 2.9 L COVID-19 (LUIS) 06/20/20 06/20/20 16:43 21:41 WBC RBC Hgb Hct MCV MCH MCHC RDW Plt Count MPV Absolute Neuts (auto) Neutrophils % Lymphocytes % Monocytes % Eosinophils % Basophils % Nucleated RBC % PT with INR INR Sodium Potassium Chloride Carbon Dioxide Anion Gap BUN Creatinine Est GFR (CKD-EPI)AfAm Est GFR (CKD-EPI)NonAf POC Glucometer 110 100 Random Glucose Calcium Magnesium Total Bilirubin AST ALT Alkaline Phosphatase Total Protein Albumin COVID-19 (LUIS) Active Medications Generic Name Dose Route Start Last Admin Trade Name Freq PRN Reason Stop Dose Admin Ceftriaxone Sodium 1 gm/ 50 mls @ 100 mls/hr 06/20/20 10:00 06/20/20 10:54 Dextrose IVPB 100 mls/hr DAILY ABILIO Administration Protocol Sodium Chloride 1,000 mls @ 125 mls/hr 06/19/20 18:11 06/20/20 21:38 Normal Saline - IV 125 mls/hr ASDIR ABILIO Administration Insulin Aspart 1 vial 06/19/20 22:00 06/20/20 21:42 Novolog Vial Sliding Scale - SQ Not Given ACHS ABILIO Protocol Insulin Detemir 5 units 06/19/20 22:00 06/20/20 21:40 Levemir Vial SQ 5 units HS ABILIO Administration Ketorolac Tromethamine 30 mg 06/19/20 21:56 06/21/20 02:32 Toradol Injection - IVPUSH 06/24/20 21:55 30 mg Q4H PRN Administration PAIN LEVEL 7 - 10 Ondansetron HCl 4 mg 06/19/20 18:11 Zofran Injection IVPUSH Q6H PRN NAUSEA AND/OR VOMITING Tamsulosin HCl 0.4 mg 06/20/20 08:30 06/20/20 08:50 Flomax - PO 0.4 mg DAILY@0830 [facility] Administration ASSESSMENT/PLAN: 55 year-old male with a PMH significant for Type II IDDM admitted for obstructing right ureteral calculus. Obstructing right ureteral calculus Right hydronephrosis Right hydroureter --06/19 CT spiral: 6mm distal right ureteral calculus with increased hydronephrosis and hydroureter since imaging on 06/11 --06/19 taken to OR, attempt to place stent unsuccessful due to impacted calculus with J hooking --06/20: right percutaneous nephrostomy tube placed --tube draining riley urine today --plan is to discharge patient tomorrow, follow up with Dr. Shahid on Wednesday in office Elevated creatinine, resolved Type II IDDM --Levemir 5U qhs --Novolog sliding scale coverage FEN Fluids: NS@125mL/hr Electrolytes: replete as indicated Nutrition: diabetic DVT prophylaxis: SCDs Dispo: continues to require inpatient care. Full code. Visit type - Emergency Visit Emergency Visit: Yes ED Registration Date: 06/19/20 Care time: The patient presented to the Emergency Department on the above date and was hospitalized for further evaluation of their emergent condition. - New Patient This patient is new to me today: No - Critical Care Critical Care patient: No
[2020-06-21] MEDS: INSULIN SLIDING SCALE (NOVOLOG) 1 VIAL SQ SCH ×4 (06:09→21:12)
[2020-06-21 08:13] LABS: BASO % 0.9 % (0-2.0); EOS % 1.3 % (0-4.5); HEMATOCRIT 38.8 % (35.4-49); LYMPH % 33.5 % (8-40); MCH 30.6 pg (25.7-33.7); MCHC 33.4 g/dl (32.0-35.9); MEAN CELL VOLUME 91.6 fl (80-96); MEAN PLT VOLUME 10.1 fl (7.5-11.1); MONO % 9.2 % (3.8-10.2); NEUT % 55.1 % (42.8-82.8); PLATELET COUNT 167 K/MM3 (134-434); RBC 4.23 M/mm3 (4.00-5.60); RDW 13.2 % (11.9-15.9); WHITE BLOOD COUNT 10.5 K/mm3 (4.0-10.0)
[2020-06-21 08:42] LABS: ALBUMIN 2.8 g/dl (3.4-5.0); BILIRUBIN,TOTAL 0.6 mg/dL (0.2-1); BLOOD UREA NITROGEN 11.2 mg/dL (7-18); CALCIUM 7.7 mg/dL (8.5-10.1); CREATININE 0.8 mg/dL (0.55-1.3); MAGNESIUM 1.9 mg/dL (1.8-2.4); POTASSIUM 3.8 mmol/L (3.5-5.1); TOT PROT 5.5 g/dl (6.4-8.2)
[2020-06-21] MEDS: TAMSULOSIN HCL 0.4 MG CAP PO SCH (10:16)
[2020-06-21] MEDS: SODIUM CHLORIDE 1,000 ML IV SCH ×2 (10:16→19:17)
[2020-06-21] MEDS ORDERED: cefTRIAXone SODIUM 1 GM VIAL ONE (10:36)
[2020-06-21] MEDS ORDERED: DEXTROSE 5%-WATER - 50 ML IVPB ONE (10:36)
[2020-06-21] MEDS: CEFTRIAXONE 1 GM in DEXTROSE 5%-WATER - 50 ML IVPB SCH (10:38)
--- NOTE | 2020-06-21 14:56 | PN ---
Progress Note (short form) - Note Progress Note: Follow up. Successfully underwent PCN. Doing well. Discontinue [place] today. For possible discharge tomorrow and follow up in the office next week.
[2020-06-21] MEDS: INSULIN (LEVEMIR) 100 UNITS/ML UNITS SQ SCH (21:12)
[2020-06-22] MEDS: INSULIN SLIDING SCALE (NOVOLOG) 1 VIAL SQ SCH ×2 (06:07→11:57)
[2020-06-22] MEDS ORDERED: DEXTROSE 5%-WATER - 50 ML IVPB ONE (09:05)
[2020-06-22] MEDS ORDERED: cefTRIAXone SODIUM 1 GM VIAL ONE (09:05)
[2020-06-22] MEDS: TAMSULOSIN HCL 0.4 MG CAP PO SCH (09:10)
[2020-06-22] MEDS: CEFTRIAXONE 1 GM in DEXTROSE 5%-WATER - 50 ML IVPB SCH (09:10)
--- NOTE | 2020-06-22 09:29 | PN ---
Progress Note, Physician Chief Complaint: no new c/o. sleeping but arousable, - Current Medication List Current Medications: Active Medications Ceftriaxone Sodium 1 gm/ (Dextrose) 50 mls @ 100 mls/hr IVPB DAILY [facility]; Protocol Last Admin: 06/22/20 09:10 Dose: 100 mls/hr Documented by: Insulin Aspart (Novolog Vial Sliding Scale -) 1 vial SQ ACHS [facility]; Protocol Last Admin: 06/22/20 06:07 Dose: Not Given Documented by: Insulin Detemir (Levemir Vial) 5 units SQ HS [facility] Last Admin: 06/21/20 21:12 Dose: 5 units Documented by: Ketorolac Tromethamine (Toradol Injection -) 30 mg IVPUSH Q4H PRN PRN Reason: PAIN LEVEL 7 - 10 Stop: 06/24/20 21:55 Last Admin: 06/21/20 02:32 Dose: 30 mg Documented by: Ondansetron HCl (Zofran Injection) 4 mg IVPUSH Q6H PRN PRN Reason: NAUSEA AND/OR VOMITING Tamsulosin HCl (Flomax -) 0.4 mg PO DAILY@0830 [facility] Last Admin: 06/22/20 09:10 Dose: 0.4 mg Documented by: - Objective Vital Signs: Vital Signs Temperature 97.8 F 06/22/20 06:08 Pulse Rate 61 06/22/20 06:08 Respiratory Rate 20 06/22/20 06:08 Blood Pressure 122/72 06/22/20 06:08 O2 Sat by Pulse Oximetry (%) 98 06/22/20 00:00 Constitutional: Yes: No Distress, Calm Eyes: Yes: Conjunctiva Clear, EOM Intact HENT: Yes: Atraumatic, Normocephalic Neck: Yes: Supple, Trachea Midline Cardiovascular: Yes: Regular Rate and Rhythm Respiratory: Yes: Regular, CTA Bilaterally Gastrointestinal: Yes: Normal Bowel Sounds, Soft Genitourinary: Yes: Other (nephrostomy tube clear urine) Extremities: Yes: WNL Edema: No Peripheral Pulses WNL: Yes Labs: CBC, BMP 06/21/20 07:10 06/21/20 07:10 INR, PTT INR 1.33 (0.83-1.09) H 06/20/20 09:40 Impression/Plan Impression/Plan: 55 year-old male with a PMH significant for Type II IDDM admitted for obstructing right ureteral calculus. Obstructing right ureteral calculus Right hydronephrosis Right hydroureter 06/19 taken to OR, attempt to place stent unsuccessful due to impacted calculus with J hooking --06/20: right percutaneous nephrostomy tube placed is voidin now, and vns at home for nephrostomy care, --plan is to discharge home today, follow up with Dr. Shahid on Wednesday in office Elevated creatinine, resolved Type II IDDM home meds, DVT prophylaxis: SCDs Visit type - Emergency Visit Emergency Visit: No - New Patient This patient is new to me today: Yes Date on this admission: 06/22/20 - Critical Care Critical Care patient: No - Discharge Referral Referred to [facility] Med P.C.: No
[2020-06-22 15:05] VITALS: BP 121/68; PULSE 71; TEMP 98.3
--- NOTE | 2020-06-22 15:18 | DS ---
Physical Examination Vital Signs: Vital Signs Temperature 98.3 F 06/22/20 14:00 Pulse Rate 71 06/22/20 14:00 Respiratory Rate 20 06/22/20 14:00 Blood Pressure 121/68 06/22/20 14:00 O2 Sat by Pulse Oximetry (%) 94 L 06/22/20 14:00 Constitutional: Yes: Well Nourished Eyes: Yes: Conjunctiva Clear, EOM Intact HENT: Yes: Atraumatic, Normocephalic Neck: Yes: Supple, Trachea Midline Cardiovascular: Yes: Regular Rate and Rhythm Respiratory: Yes: Regular, CTA Bilaterally Gastrointestinal: Yes: Normal Bowel Sounds, Soft, Abdomen, Obese Renal/: Yes: Other (R nephrostomy tube in place, and draining clear,) Musculoskeletal: Yes: WNL Neurological: Yes: WNL Labs: CBC, BMP 06/21/20 07:10 06/21/20 07:10 Discharge Summary Problems reviewed: Yes Reason For Visit: HYDRONEPHROSIS,FLANK PAIN, CALCULUS OF RIGHT Current Active Problems Ureteral calculus, right (Acute) Hospital Course: ASSESSMENT/PLAN: 55 year-old male with a PMH significant for Type II IDDM admitted for obstru cting right ureteral calculus. Obstructing right ureteral calculus Right hydronephrosis Right hydroureter --06/19 CT spiral: 6mm distal right ureteral calculus with increased h ydronephrosis and hydroureter since imaging on 06/11 --06/19 taken to OR, attempt to place stent unsuccessful due to impacted calculus with J hooking --06/20: right percutaneous nephrostomy tube placed --tube draining riley urine today --plan is to discharge patient today, follow up with Dr. Shahid on Wednesday in office Elevated creatinine, resolved, and will resume the home meds, and kelflex for 7 days, and will get the vns, and fu with pmd Condition: Improved - Instructions Diet, Activity, Other Instructions: A prescription has been sent to your pharmacy for Keflex which is an antibiotic. Take this medication as directed. You have an appointment with Dr. Shahid on Wednesday, at 10:00am. and monitor the home sugar, and use meds as advised, low carb diet, and 1800 dao ada, fu with your PMD Referrals: Lei Shahid MD [Staff Physician] - 06/24/20 10:00 am Disposition: HOME - Home Medications Comprehensive Discharge Medication List: Ambulatory Orders Insulin Detemir [Levemir Flextouch] 5 unit SQ HS #2 insuln.pen 06/14/20 Pantoprazole Sodium [Protonix] 40 mg PO DAILY #30 tablet.dr 06/14/20 Tamsulosin HCl [Flomax] 0.4 mg PO DAILY #30 cap.er.24h 06/14/20 metFORMIN HCL [Metformin HCl] 850 mg PO BID #60 tablet 06/14/20 Cephalexin [Keflex] 500 mg PO QID #28 capsule 06/21/20 Insulin (Levemir) [Levemir Vial] 5 units SQ HS units 06/22/20 Insulin Sliding Scale [Novolog Vial Sliding Scale -] 1 vial SQ ACHS 30 Days #1 units 06/22/20
== END 2020-06-22 16:06 | disposition home or self-care (01) | DRG 443 ==
LOC: JER 23:46 → JERBED 06-19 05:13 → J8W 06-19 21:05
PROVIDERS: ADMIT Hospitalist; ATTEND Internal Medicine
PROC: 0TJB8ZZ Inspection of Bladder, Via Natural or Artificial Opening Endoscopic (ICD-10-PCS; 2020-06-19)
PROC: 0T9030Z Drainage of Right Kidney with Drainage Device, Percutaneous Approach (ICD-10-PCS; principal; 2020-06-19 14:30)
DX: N13.2 Hydronephrosis with renal and ureteral calculous obstruction (principal); N17.9 Acute kidney failure, unspecified; E11.9 Type 2 diabetes mellitus without complications; N13.4 Hydroureter; N13.9 Obstructive and reflux uropathy, unspecified
CPT/HCPCS: 36415; 50432; 74176-TC; 76000-TC-FY; 80053; 81003; 82962; 83735; 85025; 85610; 87086; 94760; 99285-25; U0003

== ENCOUNTER 2020-07-01 05:29 | Day surgery (SDC) | payer OTHER ==
[2020-06-28 11:46] VITALS: BMI 27.4
--- OUTSIDE RECORDS SUMMARY | 2020-07-01 05:34 | XMS ---
:1965 Author Organization [facility] Support Name Relationship Address Phone UE, UNEMPLOYED Unavailable Unavailable Unavailable UE Unavailable Unavailable Unavailable MITCHELL WHITMORE DAUGHTER [address] [place] [address] MITCHELL WHITMORE Child [address] [place] [address] Re-disclosure Warning The records that you are about to access may contain information from federally- assisted alcohol or drug abuse programs. If such information is present, then the following federally mandated warning applies: This information has been disclosed to you from records protected by federal confidentiality rules (42 CFR part 2). The federal rules prohibit you from making any further disclosure of this information unless further disclosure is expressly permitted by the written consent of the person to whom it pertains or as otherwise permitted by 42 CFR part 2. A general authorization for the release of medical or other information is NOT sufficient for this purpose. The Federal rules restrict any use of the information to criminally investigate or prosecute any alcohol or drug abuse patient.The records that you are about to access may contain highly sensitive health information, the redisclosure of which is protected by Article 27-F of the [facility] Public Health law. If you continue you may haveaccess to information: Regarding HIV / AIDS; Provided by facilities licensed or operated by the [facility] Office of Mental Health; or Provided by the [facility] Office for People With Developmental Disabilities. If such information is present, then the following [facility] mandated warning applies: This information has been disclosed to you from confidential records which are protected by state law. State law prohibits you from making any further disclosure of this information without the specific written consent of the person to whom it pertains, or as otherwise permitted by law. Any unauthorized further disclosure in violation of state law may result in a fine or penitentiary sentence or both. A general authorization for the release of medical or other information is NOT sufficient authorization for further disclosure. Insurance Providers Payer name Policy type Policy ID Covered Covered libertarian's Policy P leoncio / Coverage libertarian ID relationship to [place] Inf ormation type [place] [id number] SP [id number] PENDING SP EXCHANGE SELF PAY SP INSURANCE Results ID Date Data Source [id number] 06/19/2020 11:30:00 AM EDT [facility] Name Value Range Interpretation Description Data Sup porting Code Source(s) Document(s ) SARS [facility] coronavirus 2 RNA This lab was ordered by [facility] and reported by [facility]. ID Date Data Source [id number] 06/11/2020 05:54:00 AM EDT [facility] Name Value Range Interpretation Description Data Sup porting Code Source(s) Document(s ) SARS [facility] coronavirus 2 RNA This lab was ordered by [facility] and reported by [facility]. Procedure
[2020-07-01 12:48] VITALS: BP 134/78; PULSE 73; TEMP 97.7
[2020-07-01] MEDS ORDERED: ACETAMINOPHEN 325 MG TABLET (FP) PO ONE (13:20)
[2020-07-01] MEDS ORDERED: ACETAMINOPHEN 325 MG TABLET (FP) ONE (13:20)
== END 2020-07-01 13:35 | disposition home or self-care (01) ==
LOC: JRADIR 05:29
PROVIDERS: ATTEND Urology
PROC: 0T9680Z Drainage of Right Ureter with Drainage Device, Via Natural or Artificial Opening Endoscopic (ICD-10-PCS; principal; 2020-07-01)
DX: N20.1 Calculus of ureter (principal)
CPT/HCPCS: 50693; 76000-TC-FY; C1769; C1887

== ENCOUNTER 2024-08-10 13:37 | Emergency (ER) | payer SELFPAY ==
[2024-08-10 13:52] VITALS: BMI 25.8
[2024-08-10 14:10] VITALS: BP 140/78; PULSE 82; RESP 16; TEMP 98.7
[2024-08-10 15:57] LABS: HEMATOCRIT 47.2 % (35.4-49); HEMOGLOBIN 16.4 G/dL (11.7-16.9); MCH 31.1 pg (25.7-33.7); MCHC 34.6 g/dl (32.0-35.9); MEAN CELL VOLUME 89.8 fl (80-96); MEAN PLT VOLUME 10.1 fl (7.5-11.1); PLATELET COUNT 164.3 10^3/uL (134-434); RBC 5.26 10^6/uL (4.00-5.60); RDW 12.9 % (11.9-15.9); WHITE BLOOD COUNT 9.3 10^3/uL (4.0-10.8)
[2024-08-10 15:59] LABS: PLATELET ESTIMATE ADEQUATE
[2024-08-10 16:27] LABS: ALBUMIN 4.5 g/dl (3.4-5.0); BILIRUBIN,TOTAL 0.7 mg/dl (0.2-1); CALCIUM 9.7 mg/dl (8.5-10.1); CREATININE 0.6 mg/dl (0.6-1.3); POTASSIUM 4.7 mmol/L (3.5-5.1); TOT PROT 6.9 g/dl (6.4-8.2)
[2024-08-10 19:35] LABS: HIV INTERPRETATION NEGATIVE (NEGATIVE)
== END 2024-08-10 18:00 | disposition home or self-care (01) ==
LOC: FER 13:37
DX: S30.812A Abrasion of penis, initial encounter (principal); E11.65 Type 2 diabetes mellitus with hyperglycemia; M79.604 Pain in right leg; X58.XXXA Exposure to other specified factors, initial encounter
CPT/HCPCS: 36415; 73552-TC-LT-FY; 80053; 85025; 86803; 87389; 99284-25